=== PATIENT | female | born 1930 | race Caucasian/White ===

== ENCOUNTER 2018-01-01 12:21 | Emergency (ER) | payer OTHER ==
[~2018-01-01] VITALS: Ht 167.6 cm; Wt 68.0 kg
[~2018-01-01 12:21] MED LIST: ATOR20TA42 PO; CARV6.25 PO; CLOP75 PO; ECASA PO; LEVE500 PO; NITR0.4S SL; SINE25100 PO; WAL-10TA2 PO; ZITH250T PO
[2018-01-01 12:59] VITALS: BP 144/82; PULSE 69; RESP 19; O2SAT 100
[2018-01-01] MEDS ORDERED: TETANUS/DIPHTHERIA TOXOID ADULT 0.5 ML VIAL IM ONE (13:15)
--- NOTE | 2018-01-01 13:26 | PD ---
HPI Chief Complaint: Fall Time Seen by Provider: 13:06 Travel History International Travel<30 days: No Contact w/Intl Traveler<30days: No Traveled to known affect area: No History of Present Illness HPI The patient is a 87-year-old female who presents to the emergency department after a fall at the intermediate. The patient apparently has had 3 falls since last week, unknown LOC. The patient has a history of Parkinson's disease and dementia, is a poor and limited historian. She does take aspirin daily. The patient was noted to have bruising and ecchymosis to the forehead, face, extending down into the upper chest wall. The patient denies any headache , neck pain, chest pain, shortness of breath, nausea, vomiting, abdominal pain. She does complain of mild right knee pain after the fall. She is a limited and poor historian. Symptoms are mild to moderate. Possibly exacerbated after falling. There are currently no alleviating factors. Last tetanus shot is unknown. PFSH Past Medical History Hx Anticoagulant Therapy: Yes (ASA) Anxiety: Yes Cancer: No Cardiovascular Problems: Yes High Cholesterol: Yes Cerebrovascular Accident: Yes (DYSARTHRIA) Diabetes: Yes (BORDERLINE) Patient Takes Glucophage: No Diminished Hearing: Yes Genitourinary: Yes (OCCASIONAL LEAKAGE) Hypertension: Yes Implanted Vascular Access Dvce: No Neurologic: Yes (BRAIN MENINGIOMA ) Parkinson's Disease: Yes Psychiatric: Yes Respiratory: No Seizures: Yes (NEW ONSET OF SEIZURE 11/05/12) Menopausal: Yes Past Surgical History Abdominal Surgery: Yes (APPENDECTOMY) Appendectomy: Yes Gynecologic Surgery: Yes (HYSTERECTOMY) Tonsillectomy: Yes Other Surgery: Yes Social History Alcohol Use: No Tobacco Use: No Substance Use: No Allergies-Medications (Allergen,Severity, Reaction): Coded Allergies: No Known Allergies (Unverified Adverse Reaction, Unknown, 01/01/18) Reported Meds & Prescriptions Reported Meds & Active Scripts Active Reported Nitrostat SL (Nitroglycerin) 0.4 Mg Subl 0.4 Mg SL DIRECTED PRN 1 tablet under the tongue as needed for chest pain. Repeat every 5 minutes for a total of 3 DOSES or call 911 if NO relief. Sinemet (Carbidopa-Levodopa) 25-100 Mg Tab 1 Tab PO Q8HR Levetiracetam 500 Mg Tab 500 Mg PO BID Atorvastatin (Atorvastatin Calcium) 20 Mg Tab 20 Mg PO HS Aspirin EC (Aspirin) 81 Mg Tabdr 81 Mg PO DAILY Carvedilol 3.125 Mg Tab 3.125 Mg PO BID Review of Systems ROS Limitations: Poor Historian Except as stated in HPI: all other systems reviewed are Neg HENT: No: Headaches, Neck Pain Cardiovascular: No: Chest Pain or Discomfort Respiratory: No: Shortness of Breath Gastrointestinal: No: Nausea, Vomiting, Abdominal Pain Musculoskeletal: Positive: Pain Neurologic: Positive: Other (History of Parkinson's disease and dementia), No: Change in Mentation Physical Exam Narrative GENERAL: Awake, 87-year-old female who appears her stated age and is in no acute respiratory distress. SKIN: Focused skin assessment warm/dry. HEAD: Hematoma with abrasion that appears old over the left frontal forehead. Ecchymosis with discoloration extending down from the forehead to the face to the chin and upper chest wall. EYES: Pupils equal and round. 3 mm bilateral and reactive. EOMs are intact. Patient is able to see fingers at a distance of 2 feet without difficulty. ENT: No nasal bleeding or discharge. No palpable subdural hematoma. No tenderness of the nasal bridge. T. NECK: Trachea midline. No JVD. No tenderness of the cervical vertebrae. CARDIOVASCULAR: Regular rate and rhythm. No murmur appreciated. RESPIRATORY: No accessory muscle use. Clear to auscultation. Breath sounds equal bilaterally. GASTROINTESTINAL: Abdomen soft, non-tender, nondistended. No rebound tenderness. MUSCULOSKELETAL: No obvious deformities. No clubbing. No cyanosis. No edema. Minimal tenderness over the lateral aspect of the right knee, patient is able flex the right hip and right knee to 90. NEUROLOGICAL: Awake and alert. No obvious cranial nerve deficits. Motor grossly within normal limits. Normal speech. Nonfocal. Oriented to person but not month or year. Back: No tenderness over the thoracic or lumbar vertebrae. PSYCHIATRIC: Appropriate mood and affect; insight and judgment normal. Data Data Last Documented VS Vital Signs Date Time Temp Pulse Resp B/P (MAP) Pulse Ox O2 Delivery O2 Flow Rate FiO2 01/01/18 12:59 69 19 144/82 (102) [address] Facial Bones W/O Iv Cont (01/01/18 ) Ct Brain W/O Iv Contrast(Rout) (01/01/18 ) Ct Cerv Spine W/O Contrast (01/01/18 ) Knee, Ltd (1 Or 2vws) (01/01/18 ) Pelvis, Ap Only (Routine) (01/01/18 ) Complete Blood Count With Diff (01/01/18 13:06) Basic Metabolic Panel (Bmp) (01/01/18 13:06) Creatine Kinase (Cpk) (01/01/18 13:06) Act Partial Throm Time (Ptt) (01/01/18 13:06) Prothrombin Time / Inr (Pt) (01/01/18 13:06) Tetanus/Diphtheria Tox Adult (Tetanus/Di (01/01/18 13:15) Labs Laboratory Tests Test 01/01/18 13:21 White Blood Count 12.1 TH/MM3 Red Blood Count 4.16 MIL/MM3 Hemoglobin 12.9 GM/DL Hematocrit 37.4 % Mean Corpuscular Volume 90.0 FL Mean Corpuscular Hemoglobin 31.1 PG Mean Corpuscular Hemoglobin Concent 34.5 % Red Cell Distribution Width 12.6 % Platelet Count 161 TH/MM3 Mean Platelet Volume 9.6 FL Neutrophils (%) (Auto) 82.9 % Lymphocytes (%) (Auto) 9.0 % Monocytes (%) (Auto) 7.9 % Eosinophils (%) (Auto) 0.1 % Basophils (%) (Auto) 0.1 % Neutrophils # (Auto) 10.0 TH/MM3 Lymphocytes # (Auto) 1.1 TH/MM3 Monocytes # (Auto) 1.0 TH/MM3 Eosinophils # (Auto) 0.0 TH/MM3 Basophils # (Auto) 0.0 TH/MM3 CBC Comment DIFF FINAL Differential Comment Prothrombin Time 10.0 SEC Prothromb Time International Ratio 1.0 RATIO Activated Partial Thromboplast Time 23.5 SEC Blood Urea Nitrogen 16 MG/DL Creatinine 0.76 MG/DL Random Glucose 96 MG/DL Calcium Level 8.8 MG/DL Sodium Level 139 MEQ/L Potassium Level 4.6 MEQ/L Chloride Level 104 MEQ/L Carbon Dioxide Level 29.4 MEQ/L Anion Gap 6 MEQ/L Estimat Glomerular Filtration Rate 72 ML/MIN Total Creatine Kinase 56 U/L MDM Medical Decision Making Medical Screen Exam Complete: Yes Emergency Medical Condition: Yes Medical Record Reviewed: Yes Interpretation(s) Last Impressions Pelvis X-Ray 01/01/18 0000 Signed Impressions: Service Date/Time: Monday, January 01, 2018 13:52 - CONCLUSION: No acute disease. Fernie Gamez MD Maxillofacial CT 01/01/18 0000 Signed Impressions: Service Date/Time: Monday, January 01, 2018 13:58 - CONCLUSION: 1. No acute facial fracture identified. 2. Soft tissue hematoma within the scalp above the left orbit. 3. 9 mm right parafalcine meningioma. Gato Grossman MD Knee X-Ray 01/01/18 0000 Signed Impressions: Service Date/Time: Monday, January 01, 2018 13:50 - CONCLUSION: Degenerative changes are noted. Fernie Gamez MD Head CT 01/01/18 0000 Signed Impressions: Service Date/Time: Monday, January 01, 2018 13:58 - CONCLUSION: Left frontal scalp hematoma otherwise stable appearance of the brain. Fernie Gamez MD Cervical Spine CT 01/01/18 0000 Signed Impressions: Service Date/Time: Monday, January 01, 2018 13:58 - CONCLUSION: 1. Advanced degenerative changes. No acute cervical spine fracture identified. Gato Grossman MD Laboratory Tests Test 01/01/18 13:21 White Blood Count 12.1 TH/MM3 Red Blood Count 4.16 MIL/MM3 Hemoglobin 12.9 GM/DL Hematocrit 37.4 % Mean Corpuscular Volume 90.0 FL Mean Corpuscular Hemoglobin 31.1 PG Mean Corpuscular Hemoglobin Concent 34.5 % Red Cell Distribution Width 12.6 % Platelet Count 161 TH/MM3 Mean Platelet Volume 9.6 FL Neutrophils (%) (Auto) 82.9 % Lymphocytes (%) (Auto) 9.0 % Monocytes (%) (Auto) 7.9 % Eosinophils (%) (Auto) 0.1 % Basophils (%) (Auto) 0.1 % Neutrophils # (Auto) 10.0 TH/MM3 Lymphocytes # (Auto) 1.1 TH/MM3 Monocytes # (Auto) 1.0 TH/MM3 Eosinophils # (Auto) 0.0 TH/MM3 Basophils # (Auto) 0.0 TH/MM3 CBC Comment DIFF FINAL Differential Comment Prothrombin Time 10.0 SEC Prothromb Time International Ratio 1.0 RATIO Activated Partial Thromboplast Time 23.5 SEC Blood Urea Nitrogen 16 MG/DL Creatinine 0.76 MG/DL Random Glucose 96 MG/DL Calcium Level 8.8 MG/DL Sodium Level 139 MEQ/L Potassium Level 4.6 MEQ/L Chloride Level 104 MEQ/L Carbon Dioxide Level 29.4 MEQ/L Anion Gap 6 MEQ/L Estimat Glomerular Filtration Rate 72 ML/MIN Total Creatine Kinase 56 U/L Differential Diagnosis Differential diagnosis includes closed head injury, intracranial hemorrhage, skull fracture, facial fracture, cervical fracture, contusion, hematoma, abrasion. Narrative Course IV was established, labs were drawn and sent, and the patient was placed on cardiac telemetry monitoring and continuous pulse oximetry monitoring. CT of the brain, facial bones, cervical spine was obtained. Pelvis x-ray and x-ray of the right knee were obtained. The patient's labs are unremarkable. CT of the brain and facial bones reveals scalp hematoma but no acute fracture or intracranial hemorrhage. CT the cervical spine reveals degenerative changes but no fracture. X-ray of the knee and pelvis are unremarkable. Labs are unremarkable. The patient is stable for transfer/discharge back to the intermediate. Return if symptoms worsen or progress. Diagnosis Primary Impression: Traumatic hematoma of face Qualified Codes: S00.83XA - Contusion of other part of head, initial encounter Additional Impression: Abrasion Patient Instructions: General Instructions Additional Instructions: Please provide the patient a copy of CT results and lab results for transfer back to the intermediate. Ice to the hematoma. Wound care instructions to the abrasion. Follow-up with your primary physician. Med/Other Pt SpecificInfo: No Change to Meds Condition: Stable Elfego Chen MD Jan 01, 2018 13:26
[2018-01-01 13:44] LABS: BASOPHIL % 0.1 % (0.0-2.0); EOSINOPHIL % 0.1 % (0.0-4.0); HEMATOCRIT 37.4 % (35.0-46.0); HEMOGLOBIN 12.9 GM/DL (11.6-15.3); LYMPHOCYTE # 1.1 TH/MM3 (1.0-4.8); MEAN CORPUSCULAR HEMOGLOBIN 31.1 PG (27.0-34.0); MEAN CORPUSCULAR HGB CONC 34.5 % (32.0-36.0); MEAN PLATELET VOLUME 9.6 FL (7.0-11.0); MONO % 7.9 % (0.0-8.0); NEUT % 82.9 % (16.0-70.0); PLATELET COUNT 161 TH/MM3 (150-450); RED BLOOD COUNT 4.16 MIL/MM3 (4.00-5.30); RED CELL DISTRIBUTION WIDTH 12.6 % (11.6-17.2); WHITE BLOOD COUNT 12.1 TH/MM3 (4.0-11.0)
[2018-01-01] MEDS ORDERED: ATOR20TA15 PO (13:50)
[2018-01-01] MEDS ORDERED: LEVE500T8 PO (13:50)
[2018-01-01] MEDS ORDERED: NITR0.4S SL (13:50)
[2018-01-01] MEDS ORDERED: CARV3.12 PO (13:50)
[2018-01-01] MEDS ORDERED: SINE25TA PO (13:50)
[2018-01-01] MEDS ORDERED: ASPI81TA23 PO (13:50)
--- NOTE | 2018-01-01 14:02 | RADRPT ---
EXAM DATE/TIME: 01/01/2018 13:50 [facility] COMPARISON: No previous studies available for comparison. INDICATIONS : Patient states she fell yesterday, right knee pain across the joint. MEDICAL HISTORY : Cerebrovascular disease. Hypertension Diabetes mellitus type II. SURGICAL HISTORY : Hysterectomy. Appendectomy. ENCOUNTER: Initial ACUITY: 2 days PAIN SCORE: 8/10 LOCATION: Right Knee FINDINGS: There is moderate osteoarthritis of the knee greatest at the medial tibiofemoral compartment with mod erate to severe joint space, marginal osteophyte formation, spurring of the tibial spines. There is p atellar osteophyte formation superiorly. No effusion, fracture or dislocation. CONCLUSION: Degenerative changes are noted. Fernie Gamez MD on January 01, 2018 at 14:00 Board Certified Radiologist. This report was verified electronically.
--- NOTE | 2018-01-01 14:03 | RADRPT ---
EXAM DATE/TIME: 01/01/2018 13:52 [facility] COMPARISON: No previous studies available for comparison. INDICATIONS : Patient states she fell yesterday, pelvic pain. MEDICAL HISTORY : Hypertension. SURGICAL HISTORY : Hysterectomy. Appendectomy. ENCOUNTER: Initial ACUITY: 2 days PAIN SCORE: 8/10 LOCATION: Bilateral Pelvic FINDINGS: A single frontal view of the pelvis demonstrates no evidence of fracture. The bony pelvic ring is in tact. Bony mineralization is normal. The soft tissues are intact. CONCLUSION: No acute disease. Fernie Gamez MD on January 01, 2018 at 14:01 Board Certified Radiologist. This report was verified electronically.
--- NOTE | 2018-01-01 14:15 | RADRPT ---
EXAM DATE/TIME: 01/01/2018 13:58 [facility] COMPARISON: CT BRAIN W/O CONTRAST, October 15, 2015, 13:25. INDICATIONS : Multiple falls. Bruising to face and neck. RADIATION DOSE: 56.35 CTDIvol (mGy) MEDICAL HISTORY : Cerebrovascular disease. Hypertension. Brain meningioma, seizures, Parkinson's. SURGICAL HISTORY : Tonsillectomy. ENCOUNTER: Initial ACUITY: 1 week PAIN SCALE: 5/10 LOCATION: cranial TECHNIQUE: Multiple contiguous axial images were obtained of the head. Using automated exposure control and adj ustment of the mA and/or kV according to patient size, radiation dose was kept as low as reasonably a chievable to obtain optimal diagnostic quality images. DICOM format image data is available electro nically for review and comparison. FINDINGS: There is a stable extra-axial mass in the posterior fossa on the left, slight edema of the underlying cerebellar hemisphere. There is a stable partially calcified right frontal falcine meningioma. There is atrophy and encephalomalacia in the right frontal lobe and high right parietal region as well as the left frontal lobe. There is moderate periventricular white matter disease. No signs of acute infa rct, hemorrhage or new mass. Osseous structures are intact. A left frontal scalp hematoma is present. CONCLUSION: Left frontal scalp hematoma otherwise stable appearance of the brain. Fernie Gamez MD on January 01, 2018 at 14:11 Board Certified Radiologist. This report was verified electronically.
[2018-01-01 14:18] LABS: BICARBONATE 29.4 MEQ/L (21.0-32.0); CALCIUM 8.8 MG/DL (8.5-10.1); CREATININE 0.76 MG/DL (0.50-1.00)
--- NOTE | 2018-01-01 14:46 | RADRPT ---
EXAM DATE/TIME: 01/01/2018 13:58 [facility] COMPARISON: CT BRAIN W/O CONTRAST, October 15, 2015, 13:25. INDICATIONS : Trauma, multiple falls. Bruising to neck and face. RADIATION DOSE: 26.35 CTDIvol (mGy) MEDICAL HISTORY : Hypertension. Parkinsons. Seizures.Cerebrevascular disease. SURGICAL HISTORY : Tonsillectomy. ENCOUNTER: Initial ACUITY: 1 week PAIN SCORE: 5/10 LOCATION: facial TECHNIQUE: Volumetric scanning of the facial bones was performed. Using automated exposure control and adjustme nt of the mA and/or kV according to patient size, radiation dose was kept as low as reasonably achiev able to obtain optimal diagnostic quality images. DICOM format image data is available [employer] y for review and comparison. FINDINGS: ORBITS: The orbital and infraorbital osseous structures are intact. The retroconal structures have a normal configuration. No radiopaque foreign bodies are seen. NASAL BONE: The nasal bone and maxillary spine are intact ZYGOMATIC ARCHES: Symmetric without evidence of fracture. SINUSES: The maxillary, ethmoid and frontal sinuses are intact. No air-fluid levels seen. NASAL CAVITY: The nasal septum is intact and midline. The lacrimal ducts are intact. SOFT TISSUES: No radiopaque foreign bodies seen. Note is made of a soft tissue hematoma along the scalp above the l eft orbit. INTRACRANIAL: No intracranial air seen. CRIBIFORM PLATE: Grossly intact. The limited portion of brain parenchyma visualized demonstrate a 9 mm x 9 mm right parafalcine mening ioma. This was evident on patient's prior study dated 10/15/ CONCLUSION: 1. No acute facial fracture identified. 2. Soft tissue hematoma within the scalp above the left orbit. 3. 9 mm right parafalcine meningioma. Gato Grossman MD on January 01, 2018 at 14:41 Board Certified Radiologist. This report was verified electronically.
--- NOTE | 2018-01-01 14:50 | RADRPT ---
EXAM DATE/TIME: 01/01/2018 13:58 [facility] COMPARISON: CT BRAIN W/O CONTRAST, October 15, 2015, 13:25. INDICATIONS : Trauma, mulitple falls. Bruising to face and neck. RADIATION DOSE: 25.19 CTDIvol (mGy) MEDICAL HISTORY : Cerebrovascular disease. Parkinsons. Seizures.Hypertension. SURGICAL HISTORY : Tonsillectomy. ENCOUNTER: Initial ACUITY: 1 week PAIN SCALE: 4/10 LOCATION: neck TECHNIQUE: Volumetric scanning of the cervical spine was performed. Multiplanar reconstructions in the sagittal, coronal and oblique axial planes were performed. Using automated exposure control and adjustment o f the mA and/or kV according to patient size, radiation dose was kept as low as reasonably achievable to obtain optimal diagnostic quality images. DICOM format image data is available electronically f or review and comparison. FINDINGS: Sagittal and coronal reformats demonstrate degenerated disc at C5-6 and C6-7. This is seen to a lesse r extent at the C3/4 and C4/5 levels. The overall alignment is adequate. No acute fracture is identif ied. C2-C3: The thecal space neural foramina are adequate. There is mild facet arthritis bilaterally. C3-C4: There is a degenerated disc. There is minimal disc bulge with diffuse osteophytic ridging. The residu al thecal space is adequate. There is mild narrowing of the lateral recess bilaterally. There is mild facet arthritis bilaterally. C4-C5: There is a degenerated disc. There is mild osteophytic ridging. There is minimal central disc bulge. The thecal space and foramina appear adequate. C5-C6: There is a degenerated disc with osteophytic ridging from the vertebral endplates. This just effaces the ventral thecal sac. There is mild facet arthritis bilaterally. Residual thecal space appears narr owed but adequate. The foramina are adequate. C6-C7: There is a degenerated disc with diffuse osteophytic ridging and broad based disc bulge. This effaces the ventral thecal sac and abuts the ventral aspect of the cord. There is mild facet arthritis bilat erally. C7-T1: The bony spinal canal is normal in size. No evidence of disc bulge or herniation. The neural forami na are bilaterally patent. There is mild facet arthritis bilaterally. CONCLUSION: 1. Advanced degenerative changes. No acute cervical spine fracture identified. Gato Grossman MD on January 01, 2018 at 14:45 Board Certified Radiologist. This report was verified electronically.
== END 2018-01-01 16:39 | disposition home or self-care (01) ==
LOC: NEPC 12:21
DX: S00.83XA Contusion of other part of head, initial encounter (principal); M25.561 Pain in right knee; W19.XXXA Unspecified fall, initial encounter; Y92.129 Unspecified place in nursing home as the place of occurrence of the external cause; G20 Parkinson's disease; F02.80 Dementia in other diseases classified elsewhere, unspecified severity, without behavioral disturbance, psychotic disturbance, mood disturbance, and anxiety; I10 Essential (primary) hypertension; Z91.81 History of falling; Z23 Encounter for immunization
CPT/HCPCS: 70450; 70486; 72125; 72170; 73560; 80048; 82550; 85025; 85610; 85730; 90471; 90714

== ENCOUNTER 2018-02-10 19:38 | Inpatient (IN) | payer OTHER, MEDICARE ==
[~2018-02-10] VITALS: Ht 168.9 cm; Wt 77.0 kg
[~2018-02-10 19:38] MED LIST changes: +ASPI81TA23 PO; +ATOR20TA15 PO; -ATOR20TA42 PO; +CARV3.12 PO; -CARV6.25 PO; -CLOP75 PO; -ECASA PO; -LEVE500 PO; +LEVE500T8 PO; -SINE25100 PO; +SINE25TA PO; -WAL-10TA2 PO; -ZITH250T PO
[2018-02-10 19:45] VITALS: BP 176/74; PULSE 93; RESP 20; TEMP 98.8; O2SAT 99
[2018-02-10 20:17] VITALS: RESP 16; O2SAT 99
[2018-02-10 20:18] VITALS: BP 167/74; PULSE 91; RESP 16; O2SAT 99
--- NOTE | 2018-02-10 20:18 | PD ---
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 According to the patient and according to the [facility], patient reportedly had a fall a month ago. Patient is not a great historian and is plain of 0 pain. There are no other reported complaints at the time of my examination. PFSH Past Medical History Hx Anticoagulant Therapy: Yes (ASA) Anxiety: Yes Cancer: No Cardiovascular Problems: Yes High Cholesterol: Yes Cerebrovascular Accident: Yes (DYSARTHRIA) Diabetes: Yes (BORDERLINE) Patient Takes Glucophage: No Diminished Hearing: Yes Genitourinary: Yes (OCCASIONAL LEAKAGE) Hypertension: Yes Implanted Vascular Access Dvce: No Neurologic: Yes (BRAIN MENINGIOMA ) Parkinson's Disease: Yes Psychiatric: Yes Respiratory: No Seizures: Yes (NEW ONSET OF SEIZURE 11/05/12) Menopausal: Yes Past Surgical History Abdominal Surgery: Yes (APPENDECTOMY) Appendectomy: Yes Gynecologic Surgery: Yes (HYSTERECTOMY) Tonsillectomy: Yes Other Surgery: Yes Social History Alcohol Use: No Tobacco Use: No Substance Use: No Allergies-Medications (Allergen,Severity, Reaction): Coded Allergies: No Known Allergies (Unverified Allergy, Unknown, 02/10/18) Reported Meds & Prescriptions Reported Meds & Active Scripts Active Reported Furosemide 40 Mg Tab 40 Mg PO DAILY Nitrostat SL (Nitroglycerin) 0.4 Mg Subl 0.4 Mg SL DIRECTED PRN 1 tablet under the tongue as needed for chest pain. Repeat every 5 minutes for a total of 3 DOSES or call 911 if NO relief. Sinemet (Carbidopa-Levodopa) 25-100 Mg Tab 1 Tab PO Q8HR Levetiracetam 500 Mg Tab 500 Mg PO BID Atorvastatin (Atorvastatin Calcium) 20 Mg Tab 20 Mg PO HS Aspirin EC (Aspirin) 81 Mg Tabdr 81 Mg PO DAILY Carvedilol 3.125 Mg Tab 3.125 Mg PO BID Review of Systems ROS Limitations: Poor Historian Except as stated in HPI: all other systems reviewed are Neg HENT: No: Headaches, Neck Pain Cardiovascular: No: Chest Pain or Discomfort, Palpitations Respiratory: No: Cough, Shortness of Breath Gastrointestinal: No: Nausea, Vomiting, Abdominal Pain Genitourinary: No: Frequency, Dysuria Musculoskeletal: Positive: Edema (The patient denies edema however she has significant edema of her bilateral lower extremities which appear to be old. There are are also dressings to her bilateral lower extremities.), No: Weakness , Pain Neurologic: No: Weakness, Dizziness, Syncope, Headache Physical Exam Narrative GENERAL: Well-developed well-nourished female in no acute distress. Patient is moaning occasionally however denies any discomfort. SKIN: Focused skin assessment warm/dry. HEAD: Atraumatic. Normocephalic. EYES:No scleral icterus. No injection or drainage. ENT: No nasal bleeding or discharge. Mucous membranes pink and moist. NECK: Trachea midline. No JVD. Supple. CARDIOVASCULAR: Regular rate and rhythm. No murmur appreciated. RESPIRATORY: No accessory muscle use. Clear to auscultation. Breath sounds equal bilaterally. GASTROINTESTINAL: Abdomen soft, non-tender, nondistended. No rebound or guarding. MUSCULOSKELETAL: No obvious deformities. Patient does have significant bilateral lower extremity edema which appears to be old. There is no obvious cellulitis. The patient has no tenderness in her right hip or right femur. NEUROLOGICAL: Awake and mildly confused. No obvious cranial nerve deficits. Motor grossly within normal limits. Normal speech. Data Data Last Documented VS Vital Signs Date Time Temp Pulse Resp B/P (MAP) Pulse Ox O2 Delivery O2 Flow Rate FiO2 02/10/18 20:18 91 16 167/74 (105) 99 Room Air 02/10/18 19:45 98.8 Orders Orders Hip, Uni(Ap&Lat) W Ap Pelvis (02/10/18 19:56) Electrocardiogram (02/10/18 19:56) Complete Blood Count With Diff (02/10/18 19:56) Comprehensive Metabolic Panel (02/10/18 19:56) Urinalysis - C+S If Indicated (02/10/18 19:56) Chest, Single Ap (02/10/18 19:56) Iv Access Insert/Monitor (02/10/18 19:56) Ecg Monitoring (02/10/18 19:56) Oximetry (02/10/18 19:56) Urinary Catheter Insert/Apply (02/10/18 20:18) Admit Order (Ed Use Only) (02/10/18 21:48) Prothrombin Time / Inr (Pt) (02/10/18 21:48) Act Partial Throm Time (Ptt) (02/10/18 21:48) Type And Screen (02/10/18 21:48) Labs Laboratory Tests Test 02/10/18 20:12 02/10/18 20:53 White Blood Count 9.6 TH/MM3 Red Blood Count 3.74 MIL/MM3 Hemoglobin 11.2 GM/DL Hematocrit 33.7 % Mean Corpuscular Volume 90.0 FL Mean Corpuscular Hemoglobin 29.9 PG Mean Corpuscular Hemoglobin Concent 33.2 % Red Cell Distribution Width 13.4 % Platelet Count 264 TH/MM3 Mean Platelet Volume 8.5 FL Neutrophils (%) (Auto) 72.7 % Lymphocytes (%) (Auto) 13.2 % Monocytes (%) (Auto) 12.5 % Eosinophils (%) (Auto) 0.8 % Basophils (%) (Auto) 0.8 % Neutrophils # (Auto) 7.0 TH/MM3 Lymphocytes # (Auto) 1.3 TH/MM3 Monocytes # (Auto) 1.2 TH/MM3 Eosinophils # (Auto) 0.1 TH/MM3 Basophils # (Auto) 0.1 TH/MM3 CBC Comment DIFF FINAL Differential Comment Blood Urea Nitrogen 19 MG/DL Creatinine 0.85 MG/DL Random Glucose 105 MG/DL Total Protein 6.1 GM/DL Albumin 2.4 GM/DL Calcium Level 8.3 MG/DL Alkaline Phosphatase 160 U/L Aspartate Amino Transf (AST/SGOT) 39 U/L Alanine Aminotransferase (ALT/SGPT) 18 U/L Total Bilirubin 0.5 MG/DL Sodium Level 139 MEQ/L Potassium Level 3.9 MEQ/L Chloride Level 101 MEQ/L Carbon Dioxide Level 31.3 MEQ/L Anion Gap 7 MEQ/L Estimat Glomerular Filtration Rate 63 ML/MIN Urine Color YELLOW Urine Turbidity CLEAR Urine pH 6.5 Urine Specific [place] 1.019 Urine Protein TRACE mg/dL Urine Glucose (UA) NEG mg/dL Urine Ketones NEG mg/dL Urine Occult Blood NEG Urine Nitrite NEG Urine Bilirubin NEG Urine Urobilinogen 2.0 MG/DL Urine Leukocyte Esterase NEG Urine RBC 2 /hpf Urine WBC 2 /hpf Urine Hyaline Casts 3 /lpf Urine Mucus FEW /lpf Microscopic Urinalysis Comment CULT NOT INDICATED MDM Medical Decision Making Medical Screen Exam Complete: Yes Emergency Medical Condition: Yes Differential Diagnosis Fracture versus contusion versus metabolic derangement Narrative Course 88-year-old female presents from [facility] with a report that she has a right hip fracture. The patient has no reported injury since last month. She has no pain. The patient does have mild dementia and is not a great historian. X-ray confirms that she does have a subcapital right hip fracture. She will be admitted to the medicine service. There will be a consult for the on-call orthopedic surgeon. Diagnosis Primary Impression: Right hip fracture Additional Impressions: HTN (hypertension) Dementia Diabetes mellitus Admitting Information Admitting Physician Requests: Admit Deandre Fowler MD Feb 10, 2018 20:18
[2018-02-10 20:20] LABS: BASOPHIL # 0.1 TH/MM3 (0-0.2); BASOPHIL % 0.8 % (0.0-2.0); EOSINOPHIL # 0.1 TH/MM3 (0-0.4); EOSINOPHIL % 0.8 % (0.0-4.0); HEMATOCRIT 33.7 % (35.0-46.0); HEMOGLOBIN 11.2 GM/DL (11.6-15.3); LYMPH % 13.2 % (9.0-44.0); LYMPHOCYTE # 1.3 TH/MM3 (1.0-4.8); MEAN CORPUSCULAR HEMOGLOBIN 29.9 PG (27.0-34.0); MEAN CORPUSCULAR HGB CONC 33.2 % (32.0-36.0); MEAN PLATELET VOLUME 8.5 FL (7.0-11.0); MONO % 12.5 % (0.0-8.0); MONOCYTE # 1.2 TH/MM3 (0-0.9); NEUT % 72.7 % (16.0-70.0); PLATELET COUNT 264 TH/MM3 (150-450); RED BLOOD COUNT 3.74 MIL/MM3 (4.00-5.30); RED CELL DISTRIBUTION WIDTH 13.4 % (11.6-17.2); WHITE BLOOD COUNT 9.6 TH/MM3 (4.0-11.0)
--- NOTE | 2018-02-10 20:59 | RADRPT ---
EXAM DATE/TIME: 02/10/2018 20:31 [facility] COMPARISON: No previous studies available for comparison. INDICATIONS : Congestion. Pre op. MEDICAL HISTORY : None. SURGICAL HISTORY : None. ENCOUNTER: Initial ACUITY: 1 day PAIN SCORE: 6/10 LOCATION: Bilateral chest FINDINGS: A single view of the chest demonstrates the lungs to be symmetrically aerated without evidence of mas s, infiltrate or effusion. The cardiomediastinal contours are unremarkable. Films of the pelvis and right hip were included in the series 10 days a displaced subcapital fracture of the proximal right f emur. CONCLUSION: 1. No acute cardiopulmonary disease. Florentino Romero MD on February 10, 2018 at 20:55 Board Certified Radiologist. This report was verified electronically.
--- NOTE | 2018-02-10 21:03 | RADRPT ---
EXAM DATE/TIME: 02/10/2018 20:31 [facility] COMPARISON: No previous studies available for comparison. INDICATIONS : Fall. Right hip pain. MEDICAL HISTORY : None. SURGICAL HISTORY : None. ENCOUNTER: Initial ACUITY: 1 day PAIN SCORE: 10/10 LOCATION: Right pelvis FINDINGS: There is a displaced subcapital fracture of the right femoral neck with superior migration of the fem oral shaft by at least 5 cm. The fracture appears subacute. Left hip intact. Mild osteopenia. CONCLUSION: 1. Displaced subcapital fracture right femoral neck. Florentino Romero MD on February 10, 2018 at 20:59 Board Certified Radiologist. This report was verified electronically.
[2018-02-10 21:10] LABS: BILIRUBIN, URINE NEG (NEG); BLOOD, URINE NEG (NEG); GLUCOSE,URINE NEG (NEG); HYALINE CAST, URINE 3 /lpf (RARE); KETONE, URINE NEG (NEG); MUCUS URINE FEW /lpf (OCC); NITRITE,URINE NEG (NEG); PH, URINE 6.5 (5.0-8.5); URINE COLOR YELLOW (YELLW/STRAW); URINE LEUKOCYTE ESTERASE NEG (NEG)
[2018-02-10 21:12] LABS: ALBUMIN 2.4 GM/DL (3.4-5.0); ALT (GPT) 18 U/L (10-53); AST (GOT) 39 U/L (15-37); BICARBONATE 31.3 MEQ/L (21.0-32.0); BLOOD UREA NITROGEN 19 MG/DL (7-18); CALCIUM 8.3 MG/DL (8.5-10.1); CHLORIDE 101 MEQ/L (98-107); CREATININE 0.85 MG/DL (0.50-1.00); GLOMERULAR FILTRATION RATE 63 ML/MIN (>89); GLUCOSE,RANDOM 105 MG/DL (74-106); SODIUM (NA) 139 MEQ/L (136-145)
[2018-02-10 21:15] LABS: ALKALINE PHOSPHATASE 160 U/L (45-117); TOTAL BILIRUBIN ADULT 0.5 MG/DL (0.2-1.0); TOTAL PROTEIN 6.1 GM/DL (6.4-8.2)
[2018-02-10] MEDS ORDERED: SODIUM CHLORIDE 0.9% FLUSH 10 ML FLUSH IV FLUSH PRN (22:00)
[2018-02-10] MEDS ORDERED: LACTULOSE SYRUP 20 GM/30 ML CUP PO PRN (22:00)
[2018-02-10] MEDS ORDERED: BISACODYL 10 MG SUPP RECTAL PRN (22:00)
[2018-02-10] MEDS ORDERED: MAGNESIUM HYDROXIDE SUSP 30 ML CUP PO PRN (22:00)
[2018-02-10] MEDS ORDERED: MORPHINE SULFATE 2 MG/ML SYRINGE IV PUSH PRN (22:00)
[2018-02-10] MEDS ORDERED: ONDANSETRON HCL 4 MG/2 ML VIAL IVP PRN (22:00)
[2018-02-10] MEDS ORDERED: ACETAMINOPHEN/HYDROcodone 325 MG/5 MG TAB PO PRN (22:00)
[2018-02-10] MEDS ORDERED: SENNOSIDES 8.6 MG TAB PO PRN (22:00)
[2018-02-10] MEDS ORDERED: ACETAMINOPHEN 325 MG TAB PO PRN (22:00)
[2018-02-10] MEDS: CARBIDOPA/LEVODOPA 25 MG/100 MG TAB PO SCH (22:00)
--- NOTE | 2018-02-10 22:46 | HHI.HP ---
HPI Service [facility] Primary Care Physician Brennan Davis M.D. Admission Diagnosis right hip fracture, dementia, Diagnoses: (1) Hip fracture Diagnosis: Principal (2) Dementia Diagnosis: Principal (3) HTN (hypertension) Diagnosis: Principal Travel History International Travel<30 Days: No Contact w/Intl Traveler <30 Da: No Traveled to Known Affected Are: No History of Present Illness This is an 88-year-old female with a PMH of HTN, Dementia, CVA, Meningioma and Seizure Disorder who was sent to the ER from SNF secondary to outpatient imaging showing right hip fx. Per SNF report, no known/witnessed fall today. Was seen in ER on 01/01/18 for c/o multiple falls at that time, however imaging negative for fracture. Pt poor historian, unable to give much information, but does tell me her pain is controlled at this time. On arrival, BP 176/74, HR 93 , O2 sat 99% RA, Afebrile. CBC unremarkable. Chemistry essentially unremarkable. CXR with no acute findings. Hip/Pelvis X-ray with displaced subcapital fracture of right femoral neck. Review of Systems Except as stated in HPI: all other systems reviewed are Neg ROS: 14 point review of systems otherwise negative. Past Family Social History Past Medical History PMH: HTN, Dementia, CVA, Meningioma and Seizure Disorder Past Surgical History PAST SURGICAL HISTORY: Appendectomy, Hysterectomy, Tonsillectomy Allergies: Coded Allergies: No Known Allergies (Unverified Allergy, Unknown, 02/10/18) Family History PAST FAMILY HISTORY: Reviewed. No h/o DM or CAD Social History PAST SOCIAL HISTORY: Negative for alcohol, tobacco or drugs. Physical Exam Vital Signs Vital Signs Date Time Temp Pulse Resp B/P (MAP) Pulse Ox O2 Delivery O2 Flow Rate FiO2 02/10/18 20:18 91 16 167/74 (105) 99 Room Air 02/10/18 20:17 16 99 Room Air 02/10/18 19:45 98.8 93 20 176/74 (108) 99 Physical Exam PE: GENERAL: Elderly white female in no acute distress. HEENT: PERRLA, EOMI. No scleral icterus or conjunctival pallor. No lid lag or facial droop. +dysarthria, at baseline. CARDIOVASCULAR: Regular rate and rhythm. No obvious murmurs to auscultation. No chest tenderness to palpation. RESPIRATORY: No obvious rhonchi or wheezing. Clear to auscultation. Breath sounds equal bilaterally. GASTROINTESTINAL: Abdomen soft, non-tender, nondistended. BS normal. MUSCULOSKELETAL: Extremities without clubbing, cyanosis, or edema. No obvious deformities. Decreased ROM of RLE due to injury. NEUROLOGICAL: Awake, alert, dementia at baseline. No focal neurologic deficits. Moving both upper and lower extremities spontaneously. Laboratory Laboratory Tests Test 02/10/18 20:12 02/10/18 20:53 White Blood Count 9.6 Red Blood Count 3.74 Hemoglobin 11.2 Hematocrit 33.7 Mean Corpuscular Volume 90.0 Mean Corpuscular Hemoglobin 29.9 Mean Corpuscular Hemoglobin Concent 33.2 Red Cell Distribution Width 13.4 Platelet Count 264 Mean Platelet Volume 8.5 Neutrophils (%) (Auto) 72.7 Lymphocytes (%) (Auto) 13.2 Monocytes (%) (Auto) 12.5 Eosinophils (%) (Auto) 0.8 Basophils (%) (Auto) 0.8 Neutrophils # (Auto) 7.0 Lymphocytes # (Auto) 1.3 Monocytes # (Auto) 1.2 Eosinophils # (Auto) 0.1 Basophils # (Auto) 0.1 CBC Comment DIFF FINAL Differential Comment Blood Urea Nitrogen 19 Creatinine 0.85 Random Glucose 105 Total Protein 6.1 Albumin 2.4 Calcium Level 8.3 Alkaline Phosphatase 160 Aspartate Amino Transf (AST/SGOT) 39 Alanine Aminotransferase (ALT/SGPT) 18 Total Bilirubin 0.5 Sodium Level 139 Potassium Level 3.9 Chloride Level 101 Carbon Dioxide Level 31.3 Anion Gap 7 Estimat Glomerular Filtration Rate 63 Urine Color YELLOW Urine Turbidity CLEAR Urine pH 6.5 Urine Specific [place] 1.019 Urine Protein TRACE Urine Glucose (UA) NEG Urine Ketones NEG Urine Occult Blood NEG Urine Nitrite NEG Urine Bilirubin NEG Urine Urobilinogen 2.0 Urine Leukocyte Esterase NEG Urine RBC 2 Urine WBC 2 Urine Hyaline Casts 3 Urine Mucus FEW Microscopic Urinalysis Comment CULT NOT INDICATED Result Diagram: 02/10/18201102/10/182011 Caprini VTE Risk Assessment Caprini VTE Risk Assessment: No/Low Risk (score <= 1) Caprini Risk Assessment Model Point Value = 1 Point Value = 2 Point Value = 3 Point Value = 5 Age 41-60 Minor surgery BMI > 25 kg/m2 Swollen legs Varicose veins or History of unexplained or recurrent spontaneous Oral contraceptives or hormone replacement Sepsis (< 1 month) Serious lung disease, including pneumonia (< 1 month) Abnormal pulmonary function Acute myocardial infarction Congestive heart failure (< 1 month) History of inflammatory bowel disease Medical patient at bed rest Age 61-74 Arthroscopic surgery Major open surgery (> 45 min) Laparoscopic surgery (> 45 min) Malignancy Confined to bed (> 72 hours) Immobilizing plaster cast Central venous access Age >= 75 History of VTE Family history of VTE Factor V Leiden Prothrombin [id number] Lupus anticoagulant Anticardiolipin antibodies Elevated serum homocysteine Heparin-induced thrombocytopenia Other congenital or acquired thrombophilia Stroke (< 1 month) Elective arthroplasty Hip, pelvis, or leg fracture Acute spinal cord injury (< 1 month) Prophylaxis Regimen Total Risk Factor Score Risk Level Prophylaxis Regimen 0-1 Low Early ambulation 2 Moderate Order ONE of the following: *Sequential Compression Device (SCD) *Heparin 5000 units SQ BID 3-4 Higher Order ONE of the following medications: *Heparin 5000 units SQ TID *Enoxaparin/Lovenox 40 mg SQ daily (WT < 150 kg, CrCl > 30 mL/min) *Enoxaparin/Lovenox 30 mg SQ daily (WT < 150 kg, CrCl > 10-29 mL/min) *Enoxaparin/Lovenox 30 mg SQ BID (WT < 150 kg, CrCl > 30 mL/min) AND/OR *Sequential Compression Device (SCD) 5 or more Highest Order ONE of the following medications: *Heparin 5000 units SQ TID (Preferred with Epidurals) *Enoxaparin/Lovenox 40 mg SQ daily (WT < 150 kg, CrCl > 30 mL/min) *Enoxaparin/Lovenox 30 mg SQ daily (WT < 150 kg, CrCl > 10-29 mL/min) *Enoxaparin/Lovenox 30 mg SQ BID (WT < 150 kg, CrCl > 30 mL/min) AND *Sequential Compression Device (SCD) Assessment and Plan Problem List: (1) Hip fracture ICD Code: S72.009A - Fracture of unspecified part of neck of unspecified femur , initial encounter for closed fracture (2) Dementia ICD Code: F03.90 - Unspecified dementia without behavioral disturbance (3) HTN (hypertension) ICD Code: I10 - Essential (primary) hypertension Assessment and Plan A/P: 1. Right Hip Fx: h/o multiple falls, no witnessed fall today, X-ray w/ displaced subcapital fracture of right femoral neck, images reviewed by me. Consult Ortho for surgical intervention, NPO, IVF, analgesics/antiemetics as needed. Pre-op labs unremarkable, pending INR. CXR w/ no acute findings, images reviewed by me 2. HTN: Uncontrolled, likely secondary to pain, resume home medications, monitor BP, antihypertensives as needed. 3. Dementia: At baseline, resume home medications. 4. DVT Prophylaxis: Anticoagulation post op 5. Social work for d/c planning as needed. 6. Case discussed w/ ER physician at length, labs/records/imaging reviewed by me. Physician Certification 2 Midnight Certification Type: Admission for Inpatient Services Order for Inpatient Services The services are ordered in accordance with Medicare regulations or non- Medicare payer requirements, as applicable. In the case of services not specified as inpatient-only, they are appropriately provided as inpatient services in accordance with the 2-midnight benchmark. Estimated LOS (days): 2 days is the estimated time the patient will need to remain in the hospital, assuming treatment plan goals are met and no additional complications. Post-Hospital Plan: Not yet determined Parul Reyes MD Feb 10, 2018 22:46
[2018-02-10] MEDS ORDERED: FURO40TA PO (23:04)
[2018-02-10 23:23] LABS: PROTHROMBIN TIME - PATIENT 10.3 SEC (9.8-11.6)
[2018-02-11] VITALS (7 sets, daily range): BP systolic 127–151; BP diastolic 61–88; PULSE 76–94; RESP 16–18; TEMP 98.1–98.5; O2SAT 93–99
[2018-02-11] MEDS: SODIUM CHLOR 0.9% 1000 ML INJ 1,000 ML IV SCH ×3 (00:08→17:31)
[2018-02-11] MEDS: CARBIDOPA/LEVODOPA 25 MG/100 MG TAB PO SCH ×3 (06:00→22:00)
[2018-02-11] MEDS: CARVEDILOL 3.125 MG TAB PO SCH ×3 (08:35→23:14)
[2018-02-11] MEDS: DOCUSATE SODIUM 50 MG/SENNA 8.6 MG TAB PO SCH ×2 (08:35→21:00)
[2018-02-11] MEDS: SODIUM CHLORIDE 0.9% FLUSH 10 ML FLUSH IV FLUSH SCH ×2 (08:35→21:00)
[2018-02-11] MEDS: levETIRAcetam 500 MG TAB PO SCH ×3 (08:35→23:13)
--- NOTE | 2018-02-11 10:27 | HHI.PR ---
Subjective Remarks Patient mumbles more than says words. She does denied pain at this time. Complains that she is cold. Discussed with RN, no concerns at this time. Objective Vitals Vital Signs Date Time Temp Pulse Resp B/P (MAP) Pulse Ox O2 Delivery O2 Flow Rate FiO2 02/11/18 08:00 98.5 82 18 134/66 (88) 96 02/11/18 08:00 82 02/11/18 07:00 Room Air 02/11/18 06:01 02/11/18 05:10 86 18 146/67 (93) 99 Room Air 02/11/18 02:00 94 18 145/63 (90) 97 Room Air 02/11/18 00:00 94 16 127/88 (101) 97 Room Air 02/10/18 20:18 91 16 167/74 (105) 99 Room Air 02/10/18 20:17 16 99 Room Air 02/10/18 19:45 98.8 93 20 176/74 (108) 99 I/O 02/10/18 02/10/18 02/10/18 02/11/18 02/11/18 02/11/18 07:00 15:00 23:00 07:00 15:00 23:00 Intake Total 0 ml 800 ml Balance 0 ml 800 ml Intake Oral 0 ml IV Total 800 ml Result Diagram: 02/10/18201102/10/182011 Imaging Last Impressions Hip and Pelvis X-Ray 02/10/181955 Signed Impressions: Service Date/Time: Saturday, February 10, 2018 20:31 - CONCLUSION: 1. Displaced subcapital fracture right femoral neck. Florentino Romero MD Chest X-Ray 02/10/181955 Signed Impressions: Service Date/Time: Saturday, February 10, 2018 20:31 - CONCLUSION: 1. No acute cardiopulmonary disease. Florentino Romero MD Objective Remarks GENERAL: Elderly white female laying in bed, somewhat somnolent. HEENT:+dysarthria, at baseline. CARDIOVASCULAR: Regular rate and rhythm. No obvious murmurs to auscultation. RESPIRATORY: No obvious rhonchi or wheezing. Clear to auscultation. Breath sounds equal bilaterally. GASTROINTESTINAL: Abdomen soft, non-tender, nondistended. BS normal. MUSCULOSKELETAL: Extremities without edema. Right lower extremity somewhat externally rotated. NEUROLOGICAL:dementia at baseline. Pulls covers over herself A/P Problem List: (1) Hip fracture ICD Code: S72.009A - Fracture of unspecified part of neck of unspecified femur , initial encounter for closed fracture (2) Dementia ICD Code: F03.90 - Unspecified dementia without behavioral disturbance (3) HTN (hypertension) ICD Code: I10 - Essential (primary) hypertension Assessment and Plan 1. Right Hip Fx: h/o multiple falls, no witnessed fall today, X-ray w/ displaced subcapital fracture of right femoral neck. Consult Ortho for surgical intervention, NPO, IVF, analgesics/antiemetics as needed. Pre-op labs unremarkable, INR of 1.0. CXR w/ no acute findings. Rehab, antibiotics, pain control, anticoagulation per orthopedic surgery. 2. HTN: Uncontrolled, likely secondary to pain, on home medications, monitor BP, antihypertensives as needed. Better controlled this morning 3. Dementia: At baseline, on home medications. 4. DVT Prophylaxis: Anticoagulation post op 5. Social work for d/c planning as needed. Discharge Planning Awaiting recommendations for orthopedic surgery. Transfer to orthopedic floor. Luba Garcia MD Feb 11, 2018 10:27
[2018-02-11 11:23] LABS: AUTOMATED NEUTROPHIL # 5.2 TH/MM3 (1.8-7.7); BASOPHIL # 0.1 TH/MM3 (0-0.2); BASOPHIL % 0.9 % (0.0-2.0); EOSINOPHIL # 0.1 TH/MM3 (0-0.4); EOSINOPHIL % 0.8 % (0.0-4.0); HEMATOCRIT 30.7 % (35.0-46.0); HEMOGLOBIN 10.5 GM/DL (11.6-15.3); LYMPH % 20.5 % (9.0-44.0); LYMPHOCYTE # 1.6 TH/MM3 (1.0-4.8); MEAN CELL VOLUME 90.1 FL (80.0-100.0); MEAN CORPUSCULAR HEMOGLOBIN 30.8 PG (27.0-34.0); MEAN CORPUSCULAR HGB CONC 34.1 % (32.0-36.0); MEAN PLATELET VOLUME 8.7 FL (7.0-11.0); MONO % 10.3 % (0.0-8.0); MONOCYTE # 0.8 TH/MM3 (0-0.9); NEUT % 67.5 % (16.0-70.0); PLATELET COUNT 248 TH/MM3 (150-450); RED BLOOD COUNT 3.41 MIL/MM3 (4.00-5.30); RED CELL DISTRIBUTION WIDTH 13.7 % (11.6-17.2); WHITE BLOOD COUNT 7.8 TH/MM3 (4.0-11.0)
[2018-02-11 11:50] LABS: ALT (GPT) 25 U/L (10-53); AST (GOT) 30 U/L (15-37); BICARBONATE 29.8 MEQ/L (21.0-32.0); BLOOD UREA NITROGEN 14 MG/DL (7-18); CALCIUM 7.9 MG/DL (8.5-10.1); CHLORIDE 105 MEQ/L (98-107); CREATININE 0.52 MG/DL (0.50-1.00); GLOMERULAR FILTRATION RATE 112 ML/MIN (>89); GLUCOSE,RANDOM 80 MG/DL (74-106); SODIUM (NA) 141 MEQ/L (136-145)
[2018-02-11 11:52] LABS: ALKALINE PHOSPHATASE 131 U/L (45-117); TOTAL BILIRUBIN ADULT 0.6 MG/DL (0.2-1.0); TOTAL PROTEIN 5.2 GM/DL (6.4-8.2)
--- NOTE | 2018-02-11 14:36 | PD.CONS ---
cc: Lakhwinder Amaya Jr., MD HPI Service [facility] Consult Requested By Primary Care Physician Brennan Davis M.D. Admission Diagnosis right hip fracture, dementia, Diagnoses: (1) Hip fracture (2) Dementia (3) HTN (hypertension) Chief Complaint: Right femoral neck fracture History of Present Illness 88-year-old female with a PMH of HTN, Dementia, CVA, Meningioma and Seizure Disorder who was sent to the ER from SNF secondary to outpatient imaging showing right hip fx. Per SNF report, no known/witnessed fall today. Was seen in ER on 01/01/18 for c/o multiple falls at that time, however imaging negative for fracture. Pt poor historian and demented. ROS - General Review of Systems Except as stated in HPI: all other systems reviewed are Neg ROS: 14 point review of systems otherwise negative. PFSH Past Family Social History Past Medical History PMH: HTN, Dementia, CVA, Meningioma and Seizure Disorder Past Surgical History PAST SURGICAL HISTORY: Appendectomy, Hysterectomy, Tonsillectomy Allergies: Coded Allergies: No Known Allergies (Unverified Allergy, Unknown, 02/10/18) Family History PAST FAMILY HISTORY: Reviewed. No h/o DM or CAD Social History PAST SOCIAL HISTORY: Negative for alcohol, tobacco or drugs. Past Family Social History Past Medical History PMH: HTN, Dementia, CVA, Meningioma and Seizure Disorder Past Surgical History PAST SURGICAL HISTORY: Appendectomy, Hysterectomy, Tonsillectomy Allergies: Coded Allergies: No Known Allergies (Unverified Allergy, Unknown, 02/10/18) Active Ordered Medications Current Medications Medications (Trade) Dose Ordered Sig/Sadaf Route Start Time Stop Time Status Last Admin Sodium Chloride 1,000 ml @ 100 mls/hr Q10H IV 02/10/18 21:58 02/11/18 08:35 (NS Flush) 2 ml UNSCH PRN IV FLUSH 02/10/18 22:00 (NS Flush) 2 ml BID IV FLUSH 02/11/18 09:00 (Zofran Inj) 4 mg Q6H PRN IVP 02/10/18 22:00 (Tylenol) 650 mg Q6H PRN PO 02/10/18 22:00 (Berkey 5-325 Mg) 1 tab Q4H PRN PO 02/10/18 22:00 (Morphine Inj) 2 mg Q3H PRN IV PUSH 02/10/18 22:00 (Radha-Colace) 1 tab BID PO 02/11/18 09:00 (Milk Of Magnesia Liq) 30 ml Q12H PRN PO 02/10/18 22:00 (Senokot) 17.2 mg Q12H PRN PO 02/10/18 22:00 (Dulcolax Supp) 10 mg DAILY PRN RECTAL 02/10/18 22:00 (Lactulose Liq) 30 ml DAILY PRN PO 02/10/18 22:00 (Lipitor) 20 mg HS PO 02/11/18 21:00 (Sinemet 25-100 Mg) 1 tab Q8HR PO 02/10/18 22:00 02/11/18 13:51 (Coreg) 3.125 mg BID PO 02/11/18 09:00 02/11/18 09:39 (Keppra) 500 mg BID PO 02/11/18 09:00 02/11/18 09:39 Reported Meds & Active Scripts Active Reported Furosemide 40 Mg Tab 40 Mg PO DAILY Nitrostat SL (Nitroglycerin) 0.4 Mg Subl 0.4 Mg SL DIRECTED PRN 1 tablet under the tongue as needed for chest pain. Repeat every 5 minutes for a total of 3 DOSES or call 911 if NO relief. Sinemet (Carbidopa-Levodopa) 25-100 Mg Tab 1 Tab PO Q8HR Levetiracetam 500 Mg Tab 500 Mg PO BID Atorvastatin (Atorvastatin Calcium) 20 Mg Tab 20 Mg PO HS Aspirin EC (Aspirin) 81 Mg Tabdr 81 Mg PO DAILY Carvedilol 3.125 Mg Tab 3.125 Mg PO BID Family History PAST FAMILY HISTORY: Reviewed. No h/o DM or CAD Social History PAST SOCIAL HISTORY: Negative for alcohol, tobacco or drugs. Physical Exam Vital Signs Vital Signs Date Time Temp Pulse Resp B/P (MAP) Pulse Ox O2 Delivery O2 Flow Rate FiO2 02/11/18 12:00 98.4 76 16 133/61 (85) 93 02/11/18 12:00 76 02/11/18 08:00 98.5 82 18 134/66 (88) 96 02/11/18 08:00 82 02/11/18 07:00 Room Air 02/11/18 06:01 02/11/18 05:10 86 18 146/67 (93) 99 Room Air 02/11/18 02:00 94 18 145/63 (90) 97 Room Air 02/11/18 00:00 94 16 127/88 (101) 97 Room Air 02/10/18 20:18 91 16 167/74 (105) 99 Room Air 02/10/18 20:17 16 99 Room Air 02/10/18 19:45 98.8 93 20 176/74 (108) 99 Physical Exam Demented. No acute distress. Pulmonary: Normal respiratory effort. Right lower extremity: Shortened and externally rotated. Unable to access full neurological function. Good cap refill distally. Soft compartments. Bilateral upper extremity: No deformities. No crepitus or pain with passive range of motion of the wrist elbow and shoulders Laboratory Laboratory Tests Test 02/10/18 20:12 02/10/18 20:53 02/10/18 22:45 02/11/18 10:10 White Blood Count 9.6 7.8 Red Blood Count 3.74 3.41 Hemoglobin 11.2 10.5 Hematocrit 33.7 30.7 Mean Corpuscular Volume 90.0 90.1 Mean Corpuscular Hemoglobin 29.9 30.8 Mean Corpuscular Hemoglobin Concent 33.2 34.1 Red Cell Distribution Width 13.4 13.7 Platelet Count 264 248 Mean Platelet Volume 8.5 8.7 Neutrophils (%) (Auto) 72.7 67.5 Lymphocytes (%) (Auto) 13.2 20.5 Monocytes (%) (Auto) 12.5 10.3 Eosinophils (%) (Auto) 0.8 0.8 Basophils (%) (Auto) 0.8 0.9 Neutrophils # (Auto) 7.0 5.2 Lymphocytes # (Auto) 1.3 1.6 Monocytes # (Auto) 1.2 0.8 Eosinophils # (Auto) 0.1 0.1 Basophils # (Auto) 0.1 0.1 CBC Comment DIFF FINAL DIFF FINAL Differential Comment Blood Urea Nitrogen 19 14 Creatinine 0.85 0.52 Random Glucose 105 80 Total Protein 6.1 5.2 Albumin 2.4 2.0 Calcium Level 8.3 7.9 Alkaline Phosphatase 160 131 Aspartate Amino Transf (AST/SGOT) 39 30 Alanine Aminotransferase (ALT/SGPT) 18 25 Total Bilirubin 0.5 0.6 Sodium Level 139 141 Potassium Level 3.9 3.3 Chloride Level 101 105 Carbon Dioxide Level 31.3 29.8 Anion Gap 7 6 Estimat Glomerular Filtration Rate 63 112 Urine Color YELLOW Urine Turbidity CLEAR Urine pH 6.5 Urine Specific [place] 1.019 Urine Protein TRACE Urine Glucose (UA) NEG Urine Ketones NEG Urine Occult Blood NEG Urine Nitrite NEG Urine Bilirubin NEG Urine Urobilinogen 2.0 Urine Leukocyte Esterase NEG Urine RBC 2 Urine WBC 2 Urine Hyaline Casts 3 Urine Mucus FEW Microscopic Urinalysis Comment CULT NOT INDICATED Prothrombin Time 10.3 Prothromb Time International Ratio 1.0 Activated Partial Thromboplast Time 22.6 Result Diagram: 02/11/18 1010 02/11/18 1010 Imaging Last 72 hours Impressions Hip and Pelvis X-Ray 02/10/181955 Signed Impressions: Service Date/Time: Saturday, February 10, 2018 20:31 - CONCLUSION: 1. Displaced subcapital fracture right femoral neck. Florentino Romero MD Chest X-Ray 02/10/181955 Signed Impressions: Service Date/Time: Saturday, February 10, 2018 20:31 - CONCLUSION: 1. No acute cardiopulmonary disease. Florentino Romero MD Assessment & Plan Assessment and Plan 88-year-old female with a PMH of HTN, Dementia, CVA, Meningioma and Seizure Disorder who was sent to the ER from SNF secondary to outpatient imaging showing displaced right femoral neck fracture. per SNF report, no known/ witnessed fall today. Was seen in ER on 01/01/18 for c/o multiple falls at that time, however imaging negative for fracture. I am unable to get in touch with her power of applications developer. Her injury is unstable and requires left elaine-bipolar arthroplasty. I will again attempt to contact her power of applications developer who I believe is her brother to obtain surgical consent and discuss risks, benefits alternatives. Reg diet. OR likely tomorrow- right hip hemiarthroplasty Lakhwinder Amaya Jr., MD Feb 11, 2018 14:36
[2018-02-11] MEDS: ATORVASTATIN 20 MG TAB PO SCH (23:14)
[2018-02-12] VITALS: BP 136/59; PULSE 91; RESP 20; TEMP 99.4; O2SAT 91
--- NOTE | 2018-02-12 00:27 | EKG ---
Date Performed: 02/10/2018 Time Performed: 20:46:56 PTAGE: 88 years EKG: Sinus rhythm NORMAL ECG PREVIOUS TRACING : 05/09/2015 16.17 Compared to previous tracing, previously with [facility] DOCTOR: Sebastián Ferreira Interpretating Date/Time 02/12/2018 00:25:41
[2018-02-12] MEDS: SODIUM CHLOR 0.9% 1000 ML INJ 1,000 ML IV SCH ×2 (03:39→13:27)
[2018-02-12 04:00] VITALS: BP 141/66; PULSE 86; RESP 16; TEMP 98.5; O2SAT 96
[2018-02-12] MEDS: CARBIDOPA/LEVODOPA 25 MG/100 MG TAB PO SCH ×3 (06:00→22:00)
[2018-02-12] MEDS ORDERED: ACETAMINOPHEN 1000 MG/100 ML 100 ML IV ONE ×2 (06:24→09:20)
[2018-02-12] MEDS ORDERED: ceFAZolin INJ 1,000 MG VIAL ONE (07:07)
[2018-02-12] MEDS ORDERED: GENTAMICIN SULFATE 80 MG/2 ML VIAL ONE ×2 (07:07→09:56)
[2018-02-12] MEDS ORDERED: VANCOMYCIN HCL 1000 MG VIAL ONE ×2 (07:07→09:59)
--- NOTE | 2018-02-12 07:51 | PD.ORT.PN ---
Subjective Subjective Remarks s/p right hip fx patient confused and unable to give any history Objective Vitals Vital Signs Date Time Temp Pulse Resp B/P (MAP) Pulse Ox O2 Delivery O2 Flow Rate FiO2 02/12/18 04:00 98.5 86 16 141/66 (91) 96 02/12/18 00:00 99.4 91 20 136/59 (84) 91 02/11/18 20:00 98.1 87 16 151/83 (105) 96 02/11/18 16:00 83 02/11/18 16:00 98.5 83 16 136/83 (100) 96 02/11/18 12:00 98.4 76 16 133/61 (85) 93 02/11/18 12:00 76 02/11/18 08:00 98.5 82 18 134/66 (88) 96 02/11/18 08:00 82 I/O 02/11/18 02/11/18 02/11/18 02/12/18 02/12/18 02/12/18 07:00 15:00 23:00 07:00 15:00 23:00 Intake Total 0 ml 800 ml 900 ml 0 ml Output Total 1800 ml 550 ml Balance 0 ml 800 ml -900 ml -550 ml Intake Oral 0 ml 0 ml 0 ml IV Total 800 ml 900 ml Output Urine Total 1800 ml 550 ml # Bowel Movements 0 Result Diagram: 02/11/18 1010 02/11/18 1010 Objective Remarks RLE: grimace and pain with movement of right leg. +cap refill distally Assessment & Plan Assessment and Plan 1) Right Femoral Neck Fx -npo -consents -OR with Arsenio Sifuentes/[employer] Feb 12, 2018 07:51
[2018-02-12 08:00] VITALS: BP 138/69; PULSE 80; RESP 17; TEMP 98; O2SAT 96
[2018-02-12] MEDS ORDERED: TRANEXAMIC ACID IV SCH (09:00)
[2018-02-12] MEDS ORDERED: SODIUM CHLORIDE 0.9% IV SCH (09:00)
[2018-02-12] MEDS: DOCUSATE SODIUM 50 MG/SENNA 8.6 MG TAB PO SCH ×2 (09:00→21:00)
[2018-02-12] MEDS: SODIUM CHLORIDE 0.9% FLUSH 10 ML FLUSH IV FLUSH SCH ×2 (09:00→21:00)
[2018-02-12] MEDS: CARVEDILOL 3.125 MG TAB PO SCH ×2 (09:00→21:00)
[2018-02-12] MEDS: levETIRAcetam 500 MG TAB PO SCH ×2 (09:00→21:00)
[2018-02-12] MEDS ORDERED: VITA500012 PO (11:06)
[2018-02-12] MEDS ORDERED: VITA2000 PO (11:06)
[2018-02-12] MEDS ORDERED: CALCTAB19 PO (11:06)
[2018-02-12] MEDS ORDERED: NORC5TAB PO (11:06)
[2018-02-12] MEDS ORDERED: XARE10TA PO (11:06)
[2018-02-12] MEDS ORDERED: ERGOCALCIFEROL (VIT D2) 50,000 UNIT CAP PO ONE (11:15)
[2018-02-12] MEDS ORDERED: Post-op Orders (for Pharmacy) XX ONE (11:15)
--- NOTE | 2018-02-12 11:20 | PD.OP ---
cc: Te Segovia MD Operative Report Date of Surgery: Feb 12, 2018 Preoperative Diagnosis: Displaced right femoral neck fracture Postoperative Diagnosis: Procedure: Right hip resection arthroplasty Anesthesia: General Surgeon: Te Segovia Shuttle Truck Driver(s): PORSHA Jaime PA-C The surgical procedure was assisted by my physician physical therapy assistant instructor. My P.A. presence was necessary throughout this case for the manipulation and positioning of the surgical extremity. My P.A. was assisting me throughout the duration of this procedure. The skill set of a physician physical therapy assistant instructor was medically necessary to complete this procedure. During the surgical case the timber management technician was working at the back table and the physician physical therapy assistant instructor was directly assisting me. Operation and Findings: PLAN OF ACTIVITY Weight bear as tolerated. IMPLANTS USED DRAIN: 7 mm Dandy-Sifuentes drain DETAILS OF PROCEDURE: Karin is an 88-year-old female who has significant dementia. She initially fell approximately 6 weeks ago resulting in right hip fracture. She was seen in the emergency department. X-rays were reportedly negative at that time. Patient had persistent hip pain. She has had difficulty walking. She was ambulatory up until 6 weeks ago. She presented to the emergency room 2 days ago with displacement of right femoral neck fracture. She has been admitted for this problem. She was brought into the operating room and placed on the OR table and given general anesthesia. The patient received IV antibiotics. The patient was then placed in lateral decubitus position. The hip and leg were prepped with alcohol, followed by Hibiclens and draped in a usual sterile fashion. Clean air was used for this procedure. Time out procedure was performed. The procedure began with a 5 inch incision over the posterolateral hip. The subcutaneous tissue was dissected with the Bovie. The iliotibial band were split in line with fibers. The Charnley retractor was placed. The piriformis and external rotators were released from the femur and tagged with a #1 Vicryl suture. The capsule is now incised and tagged with #1 Vicryl. The femoral neck fracture was now visualized. A corkscrew was now used to remove the femoral head. The femoral head was sized and measured. Soft tissue was now protected. The hip skid was placed underneath the femoral neck. An oscillating saw was used to make a femoral neck cut. Patient was noted to have a sizable defect of the anterior superior aspect of the acetabulum. At this point attention was turned to preparation of the proximal femur. A box osteotome was used to remove the lateral cortex of the femoral neck. The T- handle reamer was used to open the femoral canal. Next, the canal was reamed up to size 6. Next the proximal femur was sequentially broached. A lateralizing reamer was used to help lateralize the prosthesis. At this point a trial head and neck were placed. Attempt was now made to reduce the hip. Multiple attempts were made to reduce the hip. Because of the defect of the dome of the acetabulum the bipolar was unstable and dislocated in anterior superior direction. The acetabulum was visualized. Because of the large defect, a hemiarthroplasty was not stable. At this point the patient's surgical options include resection arthroplasty versus a revision style total hip arthroplasty. Given patient's overall medical condition and dementia, she is not a good candidate for a total hip with revision style cage acetabular shell. Decision was made to leave patient with resection arthroplasty given her severe dementia , sedentary activity level, and overall medical condition. The wound was thoroughly irrigated. The capsule, piriformis and iliotibial band were closed with #1 Vicryl. Subcutaneous tissue was closed with 3-0 Vicryl. The skin was closed with yogesh. A sterile dressing was applied with Primapore. The patient was awakened and transferred to the recovery room in stable condition. Needle and sponge counts were correct. Te Segovia MD Feb 12, 2018 11:20
[2018-02-12] MEDS ORDERED: DO NOT ADM ANY ANTICOAGULANT DRUGS PRN (11:42)
[2018-02-12] MEDS ORDERED: ONDANSETRON HCL 4 MG/2 ML VIAL IV ONE (12:00)
[2018-02-12] MEDS ORDERED: PHENYLEPH/NS 1000 MCG/10 ML SYR IV ONE (12:00)
[2018-02-12] MEDS ORDERED: GLYCOPYRROLATE 1 MG/5 ML SYRINGE IV PUSH ONE (12:00)
[2018-02-12] MEDS: ceFAZolin 2 GM PREMIX 50 ML IV SCH ×2 (12:00→17:09)
[2018-02-12] MEDS ORDERED: ROCURONIUM INJ 50 MG/5 ML SYRINGE IV PUSH ONE (12:00)
[2018-02-12] MEDS ORDERED: PROPOFOL 200 MG/20 ML AMP IV ONE (12:00)
[2018-02-12] MEDS ORDERED: ceFAZolin INJ 1,000 MG VIAL IV ONE (12:00)
[2018-02-12] MEDS ORDERED: DEXAMETHASONE SOD PHOS 4 MG/ML VIAL IV ONE (12:00)
[2018-02-12] MEDS ORDERED: LACTATED RINGER'S 1000 ML INJ 1,000 ML IV ONE (12:00)
[2018-02-12] MEDS ORDERED: LIDOCAINE HCL 1% PF 5 ML SYRINGE OTHER ONE (12:00)
[2018-02-12] MEDS ORDERED: NEOSTIGMINE 5 MG/5 ML SYRINGE IV PUSH ONE (12:00)
[2018-02-12 12:25] VITALS: BP 150/65; PULSE 64; RESP 20; TEMP 97.4; O2SAT 95
[2018-02-12] MEDS: ACETAMINOPHEN/HYDROcodone 325 MG/7.5 MG TAB PO PRN ×2 (15:25→22:30)
[2018-02-12 16:00] VITALS: BP 105/51; PULSE 60; RESP 16; TEMP 97.5; O2SAT 94
--- NOTE | 2018-02-12 19:14 | HHI.PR ---
Subjective Remarks Patine seen postop. Sedated from pain medications. ADAM RN. No issues. Objective Vitals Vital Signs Date Time Temp Pulse Resp B/P (MAP) Pulse Ox O2 Delivery O2 Flow Rate FiO2 02/12/18 17:07 20 02/12/18 16:00 97.5 60 16 105/51 (69) 94 02/12/18 12:25 97.4 64 20 150/65 (93) 95 02/12/18 12:15 97.1 67 18 133/63 (86) 98 Room Air 02/12/18 12:00 68 20 127/58 (81) 98 Nasal Cannula 2 02/12/18 11:41 97.0 75 15 116/86 (96) 100 Simple Mask 6 02/12/18 08:00 98.0 80 17 138/69 (92) 96 02/12/18 07:00 Room Air 02/12/18 04:00 98.5 86 16 141/66 (91) 96 02/12/18 00:00 99.4 91 20 136/59 (84) 91 02/11/18 20:00 98.1 87 16 151/83 (105) 96 I/O 02/11/18 02/11/18 02/11/18 02/12/18 02/12/18 02/12/18 07:00 15:00 23:00 07:00 15:00 23:00 Intake Total 0 ml 800 ml 900 ml 0 ml 1500 ml 120 ml Output Total 1800 ml 550 ml 600 ml 600 ml Balance 0 ml 800 ml -900 ml -550 ml 900 ml -480 ml Intake Oral 0 ml 0 ml 0 ml 120 ml IV Total 800 ml 900 ml Other 1500 ml Output Urine Total 1800 ml 550 ml 450 ml 550 ml Drainage Total 50 ml 50 ml Estimated Blood Loss 100 ml # Bowel Movements 0 Result Diagram: 02/11/18 1010 02/11/18 1010 Objective Remarks GENERAL: Appears comfortable. Sedated. Briefly woke up CARDIOVASCULAR: Regular rate and rhythm. RESPIRATORY: No accessory muscle use. Clear to auscultation. Breath sounds equal bilaterally anteriorly. GASTROINTESTINAL: Abdomen soft, non-tender, nondistended. MUSCULOSKELETAL: Right hip post op dressing intact. Drain in place. NEUROLOGICAL: Sedated A/P Problem List: (1) Hip fracture ICD Code: S72.009A - Fracture of unspecified part of neck of unspecified femur , initial encounter for closed fracture (2) Dementia ICD Code: F03.90 - Unspecified dementia without behavioral disturbance (3) HTN (hypertension) ICD Code: I10 - Essential (primary) hypertension Assessment and Plan 1. Right Hip Fx: h/o multiple falls, no witnessed fall today, X-ray w/ displaced subcapital fracture of right femoral neck. - Orthopedics following. S/P Right hip resection arthroplasty 2. HTN: On home medications, monitor BP, antihypertensives as needed. Better controlled this morning 3. Dementia: At baseline, on home medications. 4. DVT Prophylaxis: Lovenox to start in AM. Steven Orourke MD Feb 12, 2018 19:14
[2018-02-12 20:00] VITALS: BP 123/62; PULSE 86; RESP 9; TEMP 98.3; O2SAT 100
[2018-02-12] MEDS: ATORVASTATIN 20 MG TAB PO SCH (21:00)
[2018-02-13] MEDS: ceFAZolin 2 GM PREMIX 50 ML IV SCH (00:22)
[2018-02-13 02:21] VITALS: BP 123/60; PULSE 91; RESP 17; TEMP 97.6; O2SAT 94
[2018-02-13 05:31] VITALS: BP 124/73; PULSE 96; RESP 16; TEMP 98; O2SAT 94
[2018-02-13 06:03] LABS: HEMOGLOBIN 9.1 GM/DL (11.6-15.3)
[2018-02-13] MEDS: CARBIDOPA/LEVODOPA 25 MG/100 MG TAB PO SCH ×3 (06:19→22:35)
--- NOTE | 2018-02-13 06:49 | PD.ORT.PN ---
Subjective Subjective Remarks POD 1 s/p Right hip girdle stone resection resting comfortably. no changes Objective Vitals Vital Signs Date Time Temp Pulse Resp B/P (MAP) Pulse Ox O2 Delivery O2 Flow Rate FiO2 02/13/18 05:31 98.0 96 16 124/73 (90) 94 02/13/18 02:21 97.6 91 17 123/60 (81) 94 02/12/18 20:00 98.3 86 9 123/62 (82) 100 02/12/18 17:07 20 02/12/18 16:00 97.5 60 16 105/51 (69) 94 02/12/18 12:25 97.4 64 20 150/65 (93) 95 02/12/18 12:15 97.1 67 18 133/63 (86) 98 Room Air 02/12/18 12:00 68 20 127/58 (81) 98 Nasal Cannula 2 02/12/18 11:41 97.0 75 15 116/86 (96) 100 Simple Mask 6 02/12/18 08:00 98.0 80 17 138/69 (92) 96 02/12/18 07:00 Room Air I/O 02/12/18 02/12/18 02/12/18 02/13/18 02/13/18 02/13/18 07:00 15:00 23:00 07:00 15:00 23:00 Intake Total 0 ml 1500 ml 120 ml Output Total 550 ml 600 ml 600 ml Balance -550 ml 900 ml -480 ml Intake Oral 0 ml 120 ml Other 1500 ml Output Urine Total 550 ml 450 ml 550 ml Drainage Total 50 ml 50 ml Estimated Blood Loss 100 ml Result Diagram: 02/13/18 0550 02/11/18 1010 Objective Remarks RLE: dressings clean and dry. intact. +drain= Assessment & Plan Assessment and Plan 1) Right Femoral Neck Fx s/p girdle stone resection - POD 1 -NWB -daily dressing changes with primapore POD 2 -DC drain POD 2 -CM for SNF placement -DVT prophylaxis -f/u with [facility] or [facility] in 2 weeks Arsenio Beaulieu/Seed And Fertilizer Specialist PA Feb 13, 2018 06:49
[2018-02-13 08:00] VITALS: BP 118/57; PULSE 92; RESP 16; TEMP 97.9; O2SAT 96
[2018-02-13] MEDS: DOCUSATE SODIUM 50 MG/SENNA 8.6 MG TAB PO SCH ×2 (09:01→20:06)
[2018-02-13] MEDS: levETIRAcetam 500 MG TAB PO SCH ×2 (09:01→20:06)
[2018-02-13] MEDS: CARVEDILOL 3.125 MG TAB PO SCH ×2 (09:01→20:06)
[2018-02-13] MEDS: CHOLECALCIFEROL (VIT D3) 5000 UNIT CAP PO SCH (09:01)
[2018-02-13] MEDS: SODIUM CHLORIDE 0.9% FLUSH 10 ML FLUSH IV FLUSH SCH ×2 (09:08→21:00)
--- NOTE | 2018-02-13 11:57 | HHI.PR ---
Subjective Remarks Patient is demented, very confused. Denies any pain. Objective Vitals Vital Signs Date Time Temp Pulse Resp B/P (MAP) Pulse Ox O2 Delivery O2 Flow Rate FiO2 02/13/18 08:00 97.9 92 16 118/57 (77) 96 02/13/18 05:31 98.0 96 16 124/73 (90) 94 02/13/18 02:21 97.6 91 17 123/60 (81) 94 02/12/18 20:00 98.3 86 9 123/62 (82) 100 02/12/18 17:07 20 02/12/18 16:00 97.5 60 16 105/51 (69) 94 02/12/18 12:25 97.4 64 20 150/65 (93) 95 02/12/18 12:15 97.1 67 18 133/63 (86) 98 Room Air 02/12/18 12:00 68 20 127/58 (81) 98 Nasal Cannula 2 I/O 02/12/18 02/12/18 02/12/18 02/13/18 02/13/18 02/13/18 07:00 15:00 23:00 07:00 15:00 23:00 Intake Total 0 ml 1500 ml 120 ml Output Total 550 ml 600 ml 600 ml Balance -550 ml 900 ml -480 ml Intake Oral 0 ml 120 ml Other 1500 ml Output Urine Total 550 ml 450 ml 550 ml Drainage Total 50 ml 50 ml Estimated Blood Loss 100 ml Result Diagram: 02/13/18 0550 02/11/18 1010 Objective Remarks GENERAL: Appears comfortable. Sedated. Briefly woke up CARDIOVASCULAR: Regular rate and rhythm. RESPIRATORY: No accessory muscle use. Clear to auscultation. Breath sounds equal bilaterally anteriorly. GASTROINTESTINAL: Abdomen soft, non-tender, nondistended. MUSCULOSKELETAL: Right hip post op dressing intact. Drain in place. NEUROLOGICAL: Alert and oriented to self only. A/P Problem List: (1) Hip fracture ICD Code: S72.009A - Fracture of unspecified part of neck of unspecified femur , initial encounter for closed fracture (2) Dementia ICD Code: F03.90 - Unspecified dementia without behavioral disturbance (3) HTN (hypertension) ICD Code: I10 - Essential (primary) hypertension Assessment and Plan 88-year-old female with: 1. Right Hip Fx: h/o multiple falls, no witnessed fall today, X-ray w/ displaced subcapital fracture of right femoral neck. - Orthopedics following. S/P Right hip resection/arthroplasty - Continue pain control. PT as tolerated 2. HTN: On home medications, monitor BP, antihypertensives as needed. 3. Dementia: At baseline, on home medications. 4. DVT Prophylaxis: Lovenox. Discharge Planning Will need SNF placement. Steven Orourke MD Feb 13, 2018 11:57
[2018-02-13 12:00] VITALS: BP 143/64; PULSE 102; RESP 16; TEMP 98; O2SAT 95
[2018-02-13] MEDS: ENOXAPARIN SODIUM 30 MG/0.3 ML SYRINGE SQ SCH (12:33)
[2018-02-13 16:00] VITALS: BP 127/66; PULSE 85; RESP 16; TEMP 98.2; O2SAT 96
[2018-02-13 20:00] VITALS: BP 144/62; PULSE 103; RESP 19; TEMP 97.8; O2SAT 97
[2018-02-13] MEDS: ACETAMINOPHEN/HYDROcodone 325 MG/7.5 MG TAB PO PRN (20:06)
[2018-02-13] MEDS: ATORVASTATIN 20 MG TAB PO SCH (20:06)
[2018-02-14] VITALS: BP 137/62; PULSE 90; RESP 19; TEMP 98.4; O2SAT 97
[2018-02-14] MEDS: CARBIDOPA/LEVODOPA 25 MG/100 MG TAB PO SCH ×3 (04:57→21:12)
--- NOTE | 2018-02-14 07:30 | PD.ORT.PN ---
Subjective Subjective Remarks POD 2 s/p Right hip girdle stone resection resting comfortably. no changes Objective Vitals Vital Signs Date Time Temp Pulse Resp B/P (MAP) Pulse Ox O2 Delivery O2 Flow Rate FiO2 02/14/18 00:00 98.4 90 19 137/62 (87) 97 02/13/18 20:00 97.8 103 19 144/62 (89) 97 02/13/18 16:00 98.2 85 16 127/66 (86) 96 02/13/18 12:00 98.0 102 16 143/64 (90) 95 02/13/18 08:00 97.9 92 16 118/57 (77) 96 I/O 02/13/18 02/13/18 02/13/18 02/14/18 02/14/18 02/14/18 07:00 15:00 23:00 07:00 15:00 23:00 Intake Total 240 ml 120 ml Output Total 80 ml Balance 160 ml 120 ml Intake Oral 240 ml 120 ml Drainage Total 80 ml # Voids 2 3 # Bowel Movements 0 0 Result Diagram: 02/13/18 0550 02/11/18 1010 Objective Remarks RLE: dressings clean and dry. intact. +drain= Assessment & Plan Assessment and Plan 1) Right Femoral Neck Fx s/p girdle stone resection - POD 2 -NWB -daily dressing changes with primapore -DC drain today -CM for SNF placement -DVT prophylaxis -f/u with [facility] or [facility] in 2 weeks Arsenio Beaulieu/Ski Patrol Director [facility] Feb 14, 2018 07:30
[2018-02-14 08:00] VITALS: BP 133/70; PULSE 89; RESP 18; TEMP 98.1; O2SAT 98
[2018-02-14] MEDS: CARVEDILOL 3.125 MG TAB PO SCH ×2 (08:35→21:12)
[2018-02-14] MEDS: CHOLECALCIFEROL (VIT D3) 5000 UNIT CAP PO SCH (08:35)
[2018-02-14] MEDS: DOCUSATE SODIUM 50 MG/SENNA 8.6 MG TAB PO SCH ×2 (08:35→21:12)
[2018-02-14] MEDS: levETIRAcetam 500 MG TAB PO SCH ×2 (08:35→21:12)
[2018-02-14] MEDS: SODIUM CHLORIDE 0.9% FLUSH 10 ML FLUSH IV FLUSH SCH ×2 (08:35→21:00)
[2018-02-14] MEDS: ENOXAPARIN SODIUM 30 MG/0.3 ML SYRINGE SQ SCH (11:04)
[2018-02-14 12:00] VITALS: BP 113/53; PULSE 81; RESP 18; TEMP 97.9; O2SAT 97
--- NOTE | 2018-02-14 13:00 | HHI.PR ---
Subjective Remarks Patient is status post surgery on her right hip We will need placement at SNF Discussed with patient and RN and case management Await [employer] approval for SNF placement Paperwork done Objective Vitals Vital Signs Date Time Temp Pulse Resp B/P (MAP) Pulse Ox O2 Delivery O2 Flow Rate FiO2 02/14/18 08:04 Room Air 02/14/18 08:00 98.1 89 18 133/70 (91) 98 02/14/18 00:00 98.4 90 19 137/62 (87) 97 02/13/18 20:00 97.8 103 19 144/62 (89) 97 02/13/18 16:00 98.2 85 16 127/66 (86) 96 I/O 02/13/18 02/13/18 02/13/18 02/14/18 02/14/18 02/14/18 07:00 15:00 23:00 07:00 15:00 23:00 Intake Total 240 ml 120 ml Output Total 80 ml Balance 160 ml 120 ml Intake Oral 240 ml 120 ml Drainage Total 80 ml # Voids 2 3 # Bowel Movements 0 0 Result Diagram: 02/13/18 0550 02/11/18 1010 Other Results Laboratory Tests Test 02/12/18 12:24 02/13/18 05:50 25-Hydroxy Vitamin D Total 9.1 ng/ML Hemoglobin 9.1 GM/DL Hematocrit 27.0 % Imaging Last Impressions Hip and Pelvis X-Ray 02/10/181955 Signed Impressions: Service Date/Time: Saturday, February 10, 2018 20:31 - CONCLUSION: 1. Displaced subcapital fracture right femoral neck. Florentino Romero MD Chest X-Ray 02/10/181955 Signed Impressions: Service Date/Time: Saturday, February 10, 2018 20:31 - CONCLUSION: 1. No acute cardiopulmonary disease. Florentino Romero MD Objective Remarks GENERAL: Quite lethargic and quite hard of hearing she is awake and alert and oriented times 1-2 SKIN: Warm and dry. Has edema bilateral lower extremities probably from proteins to HEAD: Atraumatic. Normocephalic. EYES: Pupils equal and round. No scleral icterus. No injection or drainage. ENT: No nasal bleeding or discharge. Mucous membranes pink and moist. NECK: Trachea midline. No JVD. CARDIOVASCULAR: Regular rate and rhythm. S1-S2 no S3 or S4 RESPIRATORY: No accessory muscle use. Clear to auscultation. Breath sounds equal bilaterally. GASTROINTESTINAL: Abdomen soft, non-tender, nondistended. Hepatic and splenic margins not palpable. MUSCULOSKELETAL: Extremities without clubbing, cyanosis, +1-2 lower extremity edema no obvious deformities. NEUROLOGICAL: Awake and alert. No obvious cranial nerve deficits. Motor grossly within normal limits. 4 out of 5 muscle strength in the arms and legs. Normal speech. PSYCHIATRIC: INAppropriate mood and affect; insight and judgment ABnormal. Procedures Date of Surgery: Feb 12, 2018 Preoperative Diagnosis: Displaced right femoral neck fracture Postoperative Diagnosis: Procedure: Right hip resection arthroplasty Anesthesia: General Surgeon: Te Sotelo Vacuum Drier Tender(s): PORSHA Jaime PA-C The surgical procedure was assisted by my physician food and nutrition services assistant. My P.A. presence was necessary throughout this case for the manipulation and positioning of the surgical extremity. My P.A. was assisting me throughout the duration of this procedure. The skill set of a physician food and nutrition services assistant was medically necessary to complete this procedure. During the surgical case the surgical training specialist was working at the back table and the physician food and nutrition services assistant was directly assisting me. Operation and Findings: PLAN OF ACTIVITY Weight bear as tolerated. IMPLANTS USED DRAIN: 7 mm Dandy-Sifuentes drain DETAILS OF PROCEDURE: Karin is an 88-year-old female who has significant dementia. She initially fell approximately 6 weeks ago resulting in right hip fracture. She was seen in the emergency department. X-rays were reportedly negative at that time. Patient had persistent hip pain. She has had difficulty walking. She was ambulatory up until 6 weeks ago. She presented to the emergency room 2 days ago with displacement of right femoral neck fracture. She has been admitted for this problem. She was brought into the operating room and placed on the OR table and given general anesthesia. The patient received IV antibiotics. The patient was then placed in lateral decubitus position. The hip and leg were prepped with alcohol, followed by Hibiclens and draped in a usual sterile fashion. Clean air was used for this procedure. Time out procedure was performed. The procedure began with a 5 inch incision over the posterolateral hip. The subcutaneous tissue was dissected with the Bovie. The iliotibial band were split in line with fibers. The Charnley retractor was placed. The piriformis and external rotators were released from the femur and tagged with a #1 Vicryl suture. The capsule is now incised and tagged with #1 Vicryl. The femoral neck fracture was now visualized. A corkscrew was now used to remove the femoral head. The femoral head was sized and measured. Soft tissue was now protected. The hip skid was placed underneath the femoral neck. An oscillating saw was used to make a femoral neck cut. Patient was noted to have a sizable defect of the anterior superior aspect of the acetabulum. At this point attention was turned to preparation of the proximal femur. A box osteotome was used to remove the lateral cortex of the femoral neck. The T- handle reamer was used to open the femoral canal. Next, the canal was reamed up to size 6. Next the proximal femur was sequentially broached. A lateralizing reamer was used to help lateralize the prosthesis. At this point a trial head and neck were placed. Attempt was now made to reduce the hip. Multiple attempts were made to reduce the hip. Because of the defect of the dome of the acetabulum the bipolar was unstable and dislocated in anterior superior direction. The acetabulum was visualized. Because of the large defect, a hemiarthroplasty was not stable. At this point the patient's surgical options include resection arthroplasty versus a revision style total hip arthroplasty. Given patient's overall medical condition and dementia, she is not a good candidate for a total hip with revision style cage acetabular shell. Decision was made to leave patient with resection arthroplasty given her severe dementia , sedentary activity level, and overall medical condition. The wound was thoroughly irrigated. The capsule, piriformis and iliotibial band were closed with #1 Vicryl. Subcutaneous tissue was closed with 3-0 Vicryl. The skin was closed with yogesh. A sterile dressing was applied with Primapore. The patient was awakened and transferred to the recovery room in stable condition. Needle and sponge counts were correct. Te Sotelo MD Feb 12, 2018 11:20 Medications and IVs Current Medications Sodium Chloride 1,000 ml @ 100 mls/hr Q10H IV Last administered on 02/12/18at 13:27; Start 02/10/18 at 21:58; Stop 02/12/18 at 21:37; Status DC Sodium Chloride (NS Flush) 2 ml UNSCH PRN IV FLUSH FLUSH AFTER USING IV ACCESS ; Start 02/10/18 at 22:00 Sodium Chloride (NS Flush) 2 ml BID IV FLUSH Last administered on 02/14/18 08: 35; Start 02/11/18 at 09:00 Ondansetron HCl (Zofran Inj) 4 mg Q6H PRN IVP NAUSEA OR VOMITING; Start at 22:00 Acetaminophen (Tylenol) 650 mg Q6H PRN PO FEVER/PAIN SCALE 1 TO 2; Start at 22:00 Acetaminophen/ Hydrocodone Bitart ([place] 5-325 Mg) 1 tab Q4H PRN PO PAIN SCALE 3 TO 5 Last administered on 02/13/18 07:00; Start 02/10/18 at 22:00 Morphine Sulfate (Morphine Inj) 2 mg Q3H PRN IV PUSH Pain 6-10; Start 02/10/18 at 22:00 Senna/Docusate Sodium (Radha-Colace) 1 tab BID PO Last administered on 08:35; Start 02/11/18 at 09:00 Magnesium Hydroxide (Milk Of Magnesia Liq) 30 ml Q12H PRN PO Mild constipation ; Start 02/10/18 at 22:00 Sennosides (Senokot) 17.2 mg Q12H PRN PO Moderate constipation; Start 02/10/18 at 22:00 Bisacodyl (Dulcolax Supp) 10 mg DAILY PRN RECTAL SEVERE CONSITIPATION; Start at 22:00 Lactulose (Lactulose Liq) 30 ml DAILY PRN PO SEVERE CONSITIPATION Last administered on 02/13/18 09:00; Start 02/10/18 at 22:00 Atorvastatin Calcium (Lipitor) 20 mg HS PO Last administered on 02/13/18 20:06 ; Start 02/11/18 at 21:00 Carbidopa/Levodopa (Sinemet 25-100 Mg) 1 tab Q8HR PO Last administered on 04:57; Start 02/10/18 at 22:00 Carvedilol (Coreg) 3.125 mg BID PO Last administered on 02/14/18 08:35; Start 02/11/18 at 09:00 Levetriacetam (Keppra) 500 mg BID PO Last administered on 4/25/18at 08:35; Start 02/11/18 at 09:00 Acetaminophen 100 ml @ As Directed STK-MED ONCE IV ; Start 02/12/18 at 06:24; Stop 02/12/18 at 06:25; Status DC Vancomycin HCl (Vancomycin Inj) 1,000 mg STK-MED ONCE .ROUTE Last administered on 02/12/18at 10:32; Start 02/12/18 at 07:07; Stop 02/12/18 at 07:08; Status DC Cefazolin Sodium (Ancef Inj) 2,000 mg STK-MED ONCE .ROUTE Last administered on 02/12/18at 10:32; Start 02/12/18 at 07:07; Stop 02/12/18 at 07:08; Status DC Gentamicin Sulfate (Gentamicin Inj) 240 mg STK-MED ONCE .ROUTE Last administered on 02/12/18at 10:41; Start 02/12/18 at 07:07; Stop 02/12/18 at 07:08 ; Status DC Tranexamic Acid 1153 mg/Sodium Chloride 111.53 ml @ 200 mls/ hr ONCE IV ; Start 02/12/18 at 09:00; Stop 02/12/18 at 15:00; Status DC Acetaminophen 100 ml @ As Directed STK-MED ONCE IV ; Start 02/12/18 at 09:20; Stop 02/12/18 at 09:21; Status DC Gentamicin Sulfate (Gentamicin Inj) 240 mg STK-MED ONCE .ROUTE ; Start 02/12/18 at 09:56; Stop 02/12/18 at 09:57; Status DC Vancomycin HCl (Vancomycin Inj) 3,000 mg STK-MED ONCE .ROUTE Last administered on 02/12/18at 10:41; Start 02/12/18 at 09:59; Stop 02/12/18 at 10:00; Status DC Cefazolin Sodium/ Dextrose 50 ml @ 100 mls/hr Q6H IV Last administered on 02/13at 00:22; Start 02/12/18 at 12:00; Stop 02/13/18 at 00:29; Status DC Miscellaneous Information (Post-op Orders (for Pharmacy)) STAT ONCE XX ; Start 02/12/18 at 11:15; Stop 02/12/18 at 11:17; Status DC Enoxaparin Sodium (Lovenox Inj) 30 mg Q24H SQ Last administered on 02/14/18at 11 :04; Start 02/13/18 at 11:00 Acetaminophen/ Hydrocodone Bitart ([place] 7.5-325 Mg) 1 tab Q3H PRN PO PAIN 3< 10 Last administered on 02/13/18at 20:06; Start 02/12/18 at 11:15 Ergocalciferol (Drisdol) 50,000 units ONCE ONCE PO Last administered on at 15:25; Start 02/12/18 at 11:15; Stop 02/12/18 at 11:17; Status DC Cholecalciferol (Vitamin D3) 5,000 units DAILY PO Last administered on at 08:35; Start 02/13/18 at 09:00 Fentanyl Citrate (fentaNYL INJ) 100 mcg STK-MED ONCE .ROUTE ; Start 02/12/18 at 11:48; Stop 02/12/18 at 11:49; Status DC Miscellaneous Information ALL NURSING DEPARTME... UNSCH PRN .XX SEE LABEL COMMENTS; Start 02/12/18 at 11:42; Stop 02/13/18 at 11:41; Status DC Lactated Ringer's 1,000 ml @ As Directed STK-MED ONCE IV ; Start 02/12/18 at 12 :00; Stop 02/13/18 at 10:14; Status DC Lidocaine HCl (Xylocaine-Mpf 1% Inj) 5 ml STK-MED ONCE OTHER ; Start 02/12/18 at 12:00; Stop 02/13/18 at 10:14; Status DC Rocuronium Denio (Zemuron Inj) 50 mg STK-MED ONCE IV PUSH ; Start 02/12/18 at 12:00; Stop 02/13/18 at 10:14; Status DC Neostigmine Methylsulfate (Prostigmine Inj) 5 mg STK-MED ONCE IV PUSH ; Start at 12:00; Stop 02/13/18 at 10:14; Status DC Glycopyrrolate (Robinul Inj) 1 mg STK-MED ONCE IV PUSH ; Start 02/12/18 at 12:00 ; Stop 02/13/18 at 10:14; Status DC Phenylephrine HCl (Neosynephrine/ NS 1000 Mcg/10ml Syr) 2,000 mcg STK-MED ONCE IV ; Start 02/12/18 at 12:00; Stop 02/13/18 at 10:14; Status DC Dexamethasone Sodium Phosphate (Decadron Inj) 4 mg STK-MED ONCE IV ; Start 02/12 at 12:00; Stop 02/13/18 at 10:14; Status DC Ondansetron HCl (Zofran Inj) 4 mg STK-MED ONCE IV ; Start 02/12/18 at 12:00; Stop 02/13/18 at 10:14; Status DC Cefazolin Sodium (Ancef Inj) 2,000 mg STK-MED ONCE IV ; Start 02/12/18 at 12:00 ; Stop 02/13/18 at 10:15; Status DC Propofol (Diprivan 200 Mg/20 ml Inj) 200 mg STK-MED ONCE IV ; Start 02/12/18 at 12:00; Stop 02/13/18 at 10:15; Status DC A/P Problem List: (1) Hip fracture ICD Code: S72.009A - Fracture of unspecified part of neck of unspecified femur , initial encounter for closed fracture (2) Dementia ICD Code: F03.90 - Unspecified dementia without behavioral disturbance (3) HTN (hypertension) ICD Code: I10 - Essential (primary) hypertension Assessment and Plan 88-year-old female with: 1. Right Hip Fx: h/o multiple falls, no witnessed fall today, X-ray w/ displaced subcapital fracture of right femoral neck. - Orthopedics following. S/P Right hip resection/arthroplasty --Right Femoral Neck Fx s/p girdle stone resection - POD 2 - Continue pain control. PT as tolerated 2. HTN: On home medications, monitor BP, antihypertensives as needed. 3. Dementia: At baseline, on home medications. 4. DVT Prophylaxis: Lovenox. Await SNF placement can be discharged later today when bed is available Discharge Planning Await SNF placement Fabian Garrett DO Feb 14, 2018 13:00
[2018-02-14] MEDS ORDERED: SENN187 PO (13:02)
--- NOTE | 2018-02-14 13:04 | HHI.DS ---
Discharge Summary Admission Date Feb 10, 2018 at 21:50 Discharge Date: Feb 14, 2018 Admitting Diagnosis right hip fracture, dementia, (1) Hip fracture ICD Code: S72.009A - Fracture of unspecified part of neck of unspecified femur , initial encounter for closed fracture Diagnosis: Principal (2) Dementia ICD Code: F03.90 - Unspecified dementia without behavioral disturbance Diagnosis: Secondary (3) HTN (hypertension) ICD Code: I10 - Essential (primary) hypertension Diagnosis: Secondary Procedures Date of Surgery: Feb 12, 2018 Preoperative Diagnosis: Displaced right femoral neck fracture Postoperative Diagnosis: Procedure: Right hip resection arthroplasty Anesthesia: General Surgeon: Te Sotelo Legal [employer] Specialist(s): PORSHA Jaime PA-C The surgical procedure was assisted by my physician surgical assistant certified. My P.A. presence was necessary throughout this case for the manipulation and positioning of the surgical extremity. My P.A. was assisting me throughout the duration of this procedure. The skill set of a physician surgical assistant certified was medically necessary to complete this procedure. During the surgical case the surgical assistant certified was working at the back table and the physician surgical assistant certified was directly assisting me. Operation and Findings: PLAN OF ACTIVITY Weight bear as tolerated. IMPLANTS USED DRAIN: 7 mm Dandy-Sifuentes drain DETAILS OF PROCEDURE: Karin is an 88-year-old female who has significant dementia. She initially fell approximately 6 weeks ago resulting in right hip fracture. She was seen in the emergency department. X-rays were reportedly negative at that time. Patient had persistent hip pain. She has had difficulty walking. She was ambulatory up until 6 weeks ago. She presented to the emergency room 2 days ago with displacement of right femoral neck fracture. She has been admitted for this problem. She was brought into the operating room and placed on the OR table and given general anesthesia. The patient received IV antibiotics. The patient was then placed in lateral decubitus position. The hip and leg were prepped with alcohol, followed by Hibiclens and draped in a usual sterile fashion. Clean air was used for this procedure. Time out procedure was performed. The procedure began with a 5 inch incision over the posterolateral hip. The subcutaneous tissue was dissected with the Bovie. The iliotibial band were split in line with fibers. The Charnley retractor was placed. The piriformis and external rotators were released from the femur and tagged with a #1 Vicryl suture. The capsule is now incised and tagged with #1 Vicryl. The femoral neck fracture was now visualized. A corkscrew was now used to remove the femoral head. The femoral head was sized and measured. Soft tissue was now protected. The hip skid was placed underneath the femoral neck. An oscillating saw was used to make a femoral neck cut. Patient was noted to have a sizable defect of the anterior superior aspect of the acetabulum. At this point attention was turned to preparation of the proximal femur. A box osteotome was used to remove the lateral cortex of the femoral neck. The T- handle reamer was used to open the femoral canal. Next, the canal was reamed up to size 6. Next the proximal femur was sequentially broached. A lateralizing reamer was used to help lateralize the prosthesis. At this point a trial head and neck were placed. Attempt was now made to reduce the hip. Multiple attempts were made to reduce the hip. Because of the defect of the dome of the acetabulum the bipolar was unstable and dislocated in anterior superior direction. The acetabulum was visualized. Because of the large defect, a hemiarthroplasty was not stable. At this point the patient's surgical options include resection arthroplasty versus a revision style total hip arthroplasty. Given patient's overall medical condition and dementia, she is not a good candidate for a total hip with revision style cage acetabular shell. Decision was made to leave patient with resection arthroplasty given her severe dementia , sedentary activity level, and overall medical condition. The wound was thoroughly irrigated. The capsule, piriformis and iliotibial band were closed with #1 Vicryl. Subcutaneous tissue was closed with 3-0 Vicryl. The skin was closed with yogesh. A sterile dressing was applied with Primapore. The patient was awakened and transferred to the recovery room in stable condition. Needle and sponge counts were correct. Te Sotelo MD Feb 12, 2018 11:20 Brief History - From Admission This is an 88-year-old female with a PMH of HTN, Dementia, CVA, Meningioma and Seizure Disorder who was sent to the ER from SNF secondary to outpatient imaging showing right hip fx. Per SNF report, no known/witnessed fall today. Was seen in ER on 01/01/18 for c/o multiple falls at that time, however imaging negative for fracture. Pt poor historian, unable to give much information, but does tell me her pain is controlled at this time. On arrival, BP 176/74, HR 93 , O2 sat 99% RA, Afebrile. CBC unremarkable. Chemistry essentially unremarkable. CXR with no acute findings. Hip/Pelvis X-ray with displaced subcapital fracture of right femoral neck. CBC/BMP: 02/13/18 0550 02/11/18 1010 Significant Findings Laboratory Tests Test 02/12/18 12:24 02/13/18 05:50 25-Hydroxy Vitamin D Total 9.1 ng/ML (30-100) Hemoglobin 9.1 GM/DL (11.6-15.3) Hematocrit 27.0 % (35.0-46.0) Imaging Last Impressions Hip and Pelvis X-Ray 02/10/181955 Signed Impressions: Service Date/Time: Saturday, February 10, 2018 20:31 - CONCLUSION: 1. Displaced subcapital fracture right femoral neck. Florentino Romero MD Chest X-Ray 02/10/181955 Signed Impressions: Service Date/Time: Saturday, February 10, 2018 20:31 - CONCLUSION: 1. No acute cardiopulmonary disease. Florentino Romero MD PE at Discharge GENERAL: Quite lethargic and quite hard of hearing she is awake and alert and oriented times 1-2 SKIN: Warm and dry. Has edema bilateral lower extremities probably from proteins to HEAD: Atraumatic. Normocephalic. EYES: Pupils equal and round. No scleral icterus. No injection or drainage. ENT: No nasal bleeding or discharge. Mucous membranes pink and moist. NECK: Trachea midline. No JVD. CARDIOVASCULAR: Regular rate and rhythm. S1-S2 no S3 or S4 RESPIRATORY: No accessory muscle use. Clear to auscultation. Breath sounds equal bilaterally. GASTROINTESTINAL: Abdomen soft, non-tender, nondistended. Hepatic and splenic margins not palpable. MUSCULOSKELETAL: Extremities without clubbing, cyanosis, +1-2 lower extremity edema no obvious deformities. NEUROLOGICAL: Awake and alert. No obvious cranial nerve deficits. Motor grossly within normal limits. 4 out of 5 muscle strength in the arms and legs. Normal speech. PSYCHIATRIC: INAppropriate mood and affect; insight and judgment ABnormal. Hospital Course This is an 88-year-old female with a PMH of HTN, Dementia, CVA, Meningioma and Seizure Disorder who was sent to the ER from SNF secondary to outpatient imaging showing right hip fx. Per SNF report, no known/witnessed fall today. Was seen in ER on 01/01/18 for c/o multiple falls at that time, however imaging negative for fracture. Pt poor historian, unable to give much information, but does tell me her pain is controlled at this time. On arrival, BP 176/74, HR 93 , O2 sat 99% RA, Afebrile. CBC unremarkable. Chemistry essentially unremarkable. CXR with no acute findings. Hip/Pelvis X-ray with displaced subcapital fracture of right femoral neck. Patient had surgery for repair of her hip /right femoral neck Can go to SNF today when bed is available and authorized by [employer] Pt Condition on Discharge: Good Discharge Disposition: Discharge to SNF Discharge Time: > 30 minutes Discharge Instructions DIET: Follow Instructions for: Heart Healthy Diet, Diabetic Diet Activities you can perform: Weight Bearing as Irene Follow up Referrals: Orthopedics - 2 Weeks @ [facility] with Te Sotelo MD PCP Follow-up - 1 Week New Medications: Calcium Carbonate-Vitamin D (Calcium 600+D 200) 600-200 Mg-Unit Tab 1 TAB PO BID for Nutritional Supplement, #60 TAB 0 Refills Cholecalciferol (Vitamin D3) 2,000 Unit Cap 2000 UNITS PO DAILY for Nutritional Supplement, #60 CAP 0 Refills Ergocalciferol (Ergocalciferol) 50,000 Unit Cap 52270 UNITS PO Q7D for Nutritional Supplement, #8 CAP Hydrocodone-Acetaminophen ([place]) 5 Mg-325 Mg Tab 1 TAB PO Q4H PRN for PAIN, #60 TAB 0 Refills Rivaroxaban (Xarelto) 10 Mg Tab 10 MG PO DAILY for Blood Clot Prevention, #14 TAB 0 Refills Sennosides (Senna-Lax) 8.6 Mg Tab 2 TAB PO BID for Bowel Management, #120 TAB Continued Medications: Aspirin DR (Aspirin EC) 81 Mg Tabdr 81 MG PO DAILY, TAB 0 Refills Atorvastatin (Atorvastatin) 20 Mg Tab 20 MG PO HS for Cholesterol Management, #30 TAB 0 Refills Carbidopa-Levodopa (Sinemet) 25-100 Mg Tab 1 TAB PO Q8HR for Parkinson Disease Mgmt, #90 TAB 0 Refills Carvedilol (Carvedilol) 3.125 Mg Tab 3.125 MG PO BID, #60 TAB 0 Refills Furosemide (Furosemide) 40 Mg Tab 40 MG PO DAILY, #30 TAB 0 Refills Levetiracetam (Levetiracetam) 500 Mg Tab 500 MG PO BID for Control Seizures, #60 TAB 0 Refills Nitroglycerin SL (Nitrostat SL) 0.4 Mg Subl 0.4 MG SL DIRECTED PRN for CHEST PAIN, #100 TAB.SL 0 Refills 1 tablet under the tongue as needed for chest pain. Repeat every 5 minutes for a total of 3 DOSES or call 911 if NO relief. Fabian Garrett DO Feb 14, 2018 13:04
[2018-02-14 16:00] VITALS: BP 130/60; PULSE 86; RESP 18; TEMP 98.5; O2SAT 96
[2018-02-14 19:50] VITALS: BP 143/63; PULSE 102; RESP 16; TEMP 98.7; O2SAT 97
[2018-02-14] MEDS: ATORVASTATIN 20 MG TAB PO SCH (21:12)
[2018-02-14] MEDS: ACETAMINOPHEN/HYDROcodone 325 MG/7.5 MG TAB PO PRN (21:15)
[2018-02-15 01:11] VITALS: BP 135/60; PULSE 83; RESP 16; TEMP 98.8; O2SAT 95
[2018-02-15] MEDS: CARBIDOPA/LEVODOPA 25 MG/100 MG TAB PO SCH ×2 (05:44→13:23)
[2018-02-15] MEDS: ACETAMINOPHEN/HYDROcodone 325 MG/7.5 MG TAB PO PRN (05:44)
[2018-02-15 06:47] VITALS: BP 148/70; PULSE 80; RESP 16; TEMP 98.3; O2SAT 96
--- NOTE | 2018-02-15 06:54 | PD.ORT.PN ---
Subjective Subjective Remarks Dementia and confusion. Objective Vitals Vital Signs Date Time Temp Pulse Resp B/P (MAP) Pulse Ox O2 Delivery O2 Flow Rate FiO2 02/15/18 06:47 98.3 80 16 148/70 (96) 96 02/15/18 01:11 98.8 83 16 135/60 (85) 95 02/14/18 21:10 Room Air 02/14/18 19:50 98.7 102 16 143/63 (89) 97 02/14/18 19:00 Room Air 02/14/18 16:00 98.5 86 18 130/60 (83) 96 02/14/18 12:00 97.9 81 18 113/53 (73) 97 02/14/18 08:04 Room Air 02/14/18 08:00 98.1 89 18 133/70 (91) 98 I/O 02/14/18 02/14/18 02/14/18 02/15/18 02/15/18 02/15/18 07:00 15:00 23:00 07:00 15:00 23:00 Intake Total 120 ml 480 ml Output Total 70 ml Balance 120 ml 410 ml Intake Oral 120 ml 480 ml IV Total 0 ml Drainage Total 70 ml # Voids 3 3 # Bowel Movements 0 Result Diagram: 02/13/18 0550 02/11/18 1010 Objective Remarks Right lower extremity: Clean dry dressings intact. Mild swelling Assessment & Plan Assessment and Plan 1) Right Femoral Neck Fx s/p girdle stone resection - POD 3 -NWB R LE -daily dressing changes with primapore -CM for SNF placement -DVT prophylaxis -f/u with [facility] or [facility] in 2 weeks Dereck Thao Jr. Feb 15, 2018 06:54
--- NOTE | 2018-02-15 07:52 | HHI.PR ---
Subjective Remarks awake and alert, stated her name, "hospital" denies any pain at present ff some commands Objective Vitals Vital Signs Date Time Temp Pulse Resp B/P (MAP) Pulse Ox O2 Delivery O2 Flow Rate FiO2 02/15/18 06:47 98.3 80 16 148/70 (96) 96 02/15/18 01:11 98.8 83 16 135/60 (85) 95 02/14/18 21:10 Room Air 02/14/18 19:50 98.7 102 16 143/63 (89) 97 02/14/18 19:00 Room Air 02/14/18 16:00 98.5 86 18 130/60 (83) 96 02/14/18 12:00 97.9 81 18 113/53 (73) 97 02/14/18 08:04 Room Air 02/14/18 08:00 98.1 89 18 133/70 (91) 98 I/O 02/14/18 02/14/18 02/14/18 02/15/18 02/15/18 02/15/18 07:00 15:00 23:00 07:00 15:00 23:00 Intake Total 120 ml 480 ml Output Total 70 ml Balance 120 ml 410 ml Intake Oral 120 ml 480 ml IV Total 0 ml Drainage Total 70 ml # Voids 3 3 # Bowel Movements 0 Result Diagram: 02/13/18 0550 02/11/18 1010 Imaging Last Impressions Hip and Pelvis X-Ray 02/10/181955 Signed Impressions: Service Date/Time: Saturday, February 10, 2018 20:31 - CONCLUSION: 1. Displaced subcapital fracture right femoral neck. Florentino Romero MD Chest X-Ray 02/10/181955 Signed Impressions: Service Date/Time: Saturday, February 10, 2018 20:31 - CONCLUSION: 1. No acute cardiopulmonary disease. Florentino Romero MD Objective Remarks awake, oriented to person and place, no acute distress anicteric lungs- no rales regular rhythm abdomen-soft, good bowel sounds right hip - post op dressing in place LE= trace edema, good peripheral pulses Procedures Date of Surgery: Feb 12, 2018 Right hip resection arthroplasty A/P Problem List: (1) Hip fracture ICD Code: S72.009A - Fracture of unspecified part of neck of unspecified femur , initial encounter for closed fracture (2) Dementia ICD Code: F03.90 - Unspecified dementia without behavioral disturbance (3) HTN (hypertension) ICD Code: I10 - Essential (primary) hypertension Assessment and Plan 88-year-old female with: 1. S/P right hip arthroplasty for Right Hip Fx/:ight Femoral Neck Fx s/p girdle stone resection - h/o multiple falls\\ X-ray w/ displaced subcapital fracture of right femoral neck. - Orthopedics following. - cleared for DC to SNF - Continue pain control. PT as tolerated daily 2. HTN: On home medications, monitor BP, antihypertensives as needed. 3. Sz disorder. Dementia: on Keppra. conitnue on Sinemet 4. DVT Prophylaxis: Lovenox. while here Xarelto ordered on DC to SNF Await SNF placement today if arranged Eliseo Bland MD Feb 15, 2018 07:52
[2018-02-15 08:00] VITALS: BP 141/65; PULSE 79; RESP 18; TEMP 97.5; O2SAT 98
[2018-02-15] MEDS: DOCUSATE SODIUM 50 MG/SENNA 8.6 MG TAB PO SCH (08:51)
[2018-02-15] MEDS: levETIRAcetam 500 MG TAB PO SCH (08:51)
[2018-02-15] MEDS: CARVEDILOL 3.125 MG TAB PO SCH (08:52)
[2018-02-15] MEDS: CHOLECALCIFEROL (VIT D3) 5000 UNIT CAP PO SCH (08:52)
[2018-02-15] MEDS: SODIUM CHLORIDE 0.9% FLUSH 10 ML FLUSH IV FLUSH SCH (08:54)
[2018-02-15] MEDS: ENOXAPARIN SODIUM 30 MG/0.3 ML SYRINGE SQ SCH (10:29)
[2018-02-15 12:00] VITALS: BP 162/68; PULSE 86; RESP 18; TEMP 98; O2SAT 96
[2018-02-15 16:00] VITALS: BP 165/75; PULSE 93; RESP 18; TEMP 98.2; O2SAT 96
[2018-02-15] MEDS ORDERED: MAGNESIUM CITRATE SOLN 300 ML BTL PO PRN (16:30)
== END 2018-02-15 17:46 | DRG 470 ==
LOC: NEPE 19:38 → NEDA 21:50 → NEDH 02-11 02:23 → N03A 02-11 06:06 → N03B 02-11 18:44 → N06A 02-13 01:09
PROVIDERS: ADMIT Internal Medicine; ATTEND Internal Medicine
PROC: 0SRR0JA Replacement of Right Hip Joint, Femoral Surface with Synthetic Substitute, Uncemented, Open Approach (ICD-10-PCS; principal; 2018-02-12 10:09)
DX: S72.011A Unspecified intracapsular fracture of right femur, initial encounter for closed fracture (principal); F03.90 Unspecified dementia, unspecified severity, without behavioral disturbance, psychotic disturbance, mood disturbance, and anxiety; G20 Parkinson's disease; G40.909 Epilepsy, unspecified, not intractable, without status epilepticus; I10 Essential (primary) hypertension; Z86.73 Personal history of transient ischemic attack (TIA), and cerebral infarction without residual deficits; Z86.011 Personal history of benign neoplasm of the brain; R29.6 Repeated falls; H91.90 Unspecified hearing loss, unspecified ear; Z79.82 Long term (current) use of aspirin; R73.03 Prediabetes
CPT/HCPCS: 51702; 71045; 73502; 80053; 81001; 82306; 84132; 85014; 85018; 85025; 85610; 85730; 86850; 86900; 86901; 93005; J0131; J0690; J1100; J1580; J1650; J2370; J2405; J2710; J3010; J3370; J7030; J7120